=== PATIENT | male | born 1955 | race African-American/Black ===

== ENCOUNTER 2017-06-19 16:28 | Observation (INO) | payer SELFPAY ==
[~2017-06-19] VITALS: Ht 167.6 cm; Wt 74.0 kg
[~2017-06-19 16:28] MED LIST: AMLO5TAB22 PO; ATOR80TA PO; FAMO20TA2 PO; FOLI1 PO; HYDR-2768 PO; LISI2.5T3 PO; OMEP20TA39 PO; PRAV10 PO; PROT40TA PO; PROZ20CA11 PO; SUCR1TAB PO; TRAZ100 PO; [UNRECOGNIZED DRUG - CODE] PO
[2017-06-19 17:09] VITALS: BP 122/65; PULSE 95; RESP 16; TEMP 98.1; O2SAT 96
--- NOTE | 2017-06-19 18:08 | RADRPT ---
EXAM DATE/TIME: 06/19/2017 17:51 [facility] COMPARISON: No previous studies available for comparison. INDICATIONS : Chest pain starting tomorrow MEDICAL HISTORY : Hypertension. Ulcers. SURGICAL HISTORY : None. ENCOUNTER: Initial ACUITY: 1 day PAIN SCORE: 6/10 LOCATION: Bilateral chest FINDINGS: A single view of the chest demonstrates the lungs to be symmetrically aerated without evidence of mas s, infiltrate or effusion. Again seen are calcified pleural plaques similar to February 2016. Minimal bl unting of the costophrenic angles. CONCLUSION: 1. No acute findings. Stable calcified pleural plaques and basilar scarring at the costophrenic angle sMaria Garcia MD on June 19, 2017 at 18:05 Board Certified Radiologist. This report was verified electronically.
[2017-06-19 18:29] LABS: AUTOMATED NEUTROPHIL # 1.2 TH/MM3 (1.8-7.7); EOSINOPHIL # 0.1 TH/MM3 (0-0.4); EOSINOPHIL % 2.6 % (0.0-4.0); HEMATOCRIT 31.1 % (39.0-51.0); HEMO FLAGS DIFF FINAL; LYMPH % 47.5 % (9.0-44.0); LYMPHOCYTE # 1.6 TH/MM3 (1.0-4.8); MEAN CELL VOLUME 79.8 FL (80.0-100.0); MEAN CORPUSCULAR HEMOGLOBIN 24.7 PG (27.0-34.0); MEAN CORPUSCULAR HGB CONC 30.9 % (32.0-36.0); MONO % 12.2 % (0.0-8.0); NEUT % 36.7 % (16.0-70.0); PLATELET COUNT 255 TH/MM3 (150-450); RED CELL DISTRIBUTION WIDTH 21.2 % (11.6-17.2); WHITE BLOOD COUNT 3.4 TH/MM3 (4.0-11.0)
[2017-06-19 18:35] LABS: INTERNATIONAL NORMALIZED RATIO 0.9 RATIO
[2017-06-19 18:49] LABS: ANION GAP 12 MEQ/L (5-15); BICARBONATE 22.5 MEQ/L (21.0-32.0); BLOOD UREA NITROGEN 12 MG/DL (7-18); CHLORIDE 97 MEQ/L (98-107); GLOMERULAR FILTRATION RATE 118 ML/MIN (>89); POTASSIUM 3.7 MEQ/L (3.5-5.1); SODIUM (NA) 131 MEQ/L (136-145)
[2017-06-19 18:54] LABS: CREATINE KINASE 262 U/L (39-308)
[2017-06-19 19:00] VITALS: BP 135/81; PULSE 94; RESP 20; O2SAT 97
--- NOTE | 2017-06-19 19:03 | PD ---
HPI . chest pain since 3 hours ago Chief Complaint: Cardiac Complaint Time Seen by Provider: 19:03 Travel History International Travel<30 days: No Contact w/Intl Traveler<30days: No Traveled to known affect area: No History of Present Illness HPI 61-year-old male with history of hypertension and hyperlipidemia here with complaints of chest pain that started approximately 3 hours ago. Patient tells me that he is having some substernal chest pain that is radiating to his left shoulder. He rates the pain as moderate. He says that he had 2 episodes of vomiting. He does not have any diaphoresis or shortness of breath. He tells me that he is just passing through the area and from [facility]. I reviewed the records and he is been to this hospital numerous times last year and had some issues with chronic anemia. Labs were already ordered on triage and demonstrate similar. First set of cardiac enzyme is unremarkable. Examination is unremarkable Patient has no other specific complaints. PFSH Past Medical History Anemia: Yes Arthritis: Yes Autoimmune Disease: No Blood Disorders: No Depression: Yes Heart Rhythm Problems: No Cancer: No Cardiovascular Problems: Yes High Cholesterol: Yes Chest Pain: Yes Congestive Heart Failure: No Diabetes: No Patient Takes Glucophage: No Diminished Hearing: No Endocrine: No Gastrointestinal Disorders: Yes (hernia) GERD: Yes Genitourinary: No Hiatal Hernia: Yes Hypertension: Yes Immune Disorder: No Implanted Vascular Access Dvce: No Musculoskeletal: Yes Neurologic: No Psychiatric: No Reproductive: No Respiratory: Yes Immunizations Current: Yes Ulcer: Yes (BLEEDING ULCERS FROM ETOH ABUSE) Tetanus Vaccination: > 5 Years Influenza Vaccination: Yes Past Surgical History AICD: No Arteriovenous Shunt: No Insulin Pump: No Joint Replacement: No Neurologic Surgery: No Pacemaker: No Other Surgery: Yes Social History Alcohol Use: Yes (DAILY) Tobacco Use: No (QUIT 2011) Substance Use: No Allergies-Medications (Allergen,Severity, Reaction): Coded Allergies: No Known Allergies (Verified , 06/19/17) Reported Meds & Prescriptions Reported Meds & Active Scripts Active Reported Aspir-81 (Aspirin) 81 Mg Tabdr 81 Mg PO DAILY Pantoprazole (Pantoprazole Sodium) 40 Mg Tab 40 Mg PO DAILY Triamterene-Hydrochlorothiazide 37.5-25 Mg Tab 1 Tab PO DAILY Metoprolol Tartrate 50 Mg Tab 50 Mg PO BID Review of Systems General / Constitutional: No: Fever Eyes: No: Visual changes HENT: No: Headaches Cardiovascular: Positive: Chest Pain or Discomfort Respiratory: No: Shortness of Breath Gastrointestinal: No: Abdominal Pain Genitourinary: No: Dysuria Musculoskeletal: No: Pain Skin: No Rash Neurologic: No: Weakness Psychiatric: No: Depression Endocrine: No: Polydipsia Hematologic/Lymphatic: No: Easy Bruising Physical Exam Narrative GENERAL: AAO x 3, no acute distress, Well-nourished, well-developed patient. SKIN: Warm and dry. No visible rashes or bruising. HEAD: Normocephalic and atraumatic. EYES: No scleral icterus. No injection or drainage. EOM intact, PERRLA ENT: No nasal drainage noted. Mucous membranes pink. Airway patent. NECK: Supple, trachea midline. No JVD. CARDIOVASCULAR: Regular rate and rhythm without murmurs, gallops, or rubs. RESPIRATORY: Breath sounds equal bilaterally. No accessory muscle use. No rhonchi or rales. GASTROINTESTINAL: Abdomen soft, non-tender, nondistended. No rebound, guarding , McBurney's point tenderness or Acuña's sign EXTREMITIES: No cyanosis or edema. BACK: No obvious deformity. NEURO: CN II-12 intact, die caster strength normal b/l, UE and LE 5/5, no focal deficits PSYCH: AAO x 3, normal affect. Data Data Last Documented VS Vital Signs Date Time Temp Pulse Resp B/P Pulse Ox O2 Delivery O2 Flow Rate FiO2 06/19/17 17:09 98.1 95 16 122/65 96 Orders Electrocardiogram (06/19/17 17:28) Complete Blood Count With Diff (06/19/17 17:28) Basic Metabolic Panel (Bmp) (06/19/17 17:28) Ckmb (Isoenzyme) Profile (06/19/17 17:28) Troponin I (06/19/17 17:28) Chest, Single Ap (06/19/17 17:28) Iv Access Insert/Monitor (06/19/17 17:28) Ecg Monitoring (06/19/17 17:28) Oxygen Administration (06/19/17 17:28) Oximetry (06/19/17 17:28) Act Partial Throm Time (Ptt) (06/19/17 17:28) Prothrombin Time / Inr (Pt) (06/19/17 17:28) CKMB (06/19/17 17:49) CKMB% (06/19/17 17:49) Admit Order (Ed Use Only) (06/19/17 20:04) Activity Bed Rest With Brp (06/19/17 20:04) Vital Signs (Adult) Q4H (06/19/17 20:04) Cardiac Rhythm .As Directed (06/19/17 20:04) Notify Dr: Other .PRN (06/19/17 20:04) Notify DrMaria Parameters (06/19/17 20:04) Resp Oxygen Nasal Cannula (06/19/17 ) Ckmb (Isoenzyme) Profile (06/19/17 21:49) Ckmb (Isoenzyme) Profile (06/20/17 00:49) Troponin I (06/19/17 21:49) Troponin I (06/20/17 00:49) Electrocardiogram (06/19/17 21:49) Electrocardiogram (06/20/17 00:49) ^ Obtain (06/19/17 20:04) Sodium Chloride 0.9% Flush (Ns Flush) (06/19/17 20:15) Sodium Chloride 0.9% Flush (Ns Flush) (06/19/17 21:00) Documentation Nurse / Telemetry [email or web address] (06/19/17 20:04) Labs Laboratory Tests Test 06/19/17 17:49 White Blood Count 3.4 TH/MM3 Red Blood Count 3.90 MIL/MM3 Hemoglobin 9.6 GM/DL Hematocrit 31.1 % Mean Corpuscular Volume 79.8 FL Mean Corpuscular Hemoglobin 24.7 PG Mean Corpuscular Hemoglobin 30.9 % Concent Red Cell Distribution Width 21.2 % Platelet Count 255 TH/MM3 Mean Platelet Volume 7.1 FL Neutrophils (%) (Auto) 36.7 % Lymphocytes (%) (Auto) 47.5 % Monocytes (%) (Auto) 12.2 % Eosinophils (%) (Auto) 2.6 % Basophils (%) (Auto) 1.0 % Neutrophils # (Auto) 1.2 TH/MM3 Lymphocytes # (Auto) 1.6 TH/MM3 Monocytes # (Auto) 0.4 TH/MM3 Eosinophils # (Auto) 0.1 TH/MM3 Basophils # (Auto) 0.0 TH/MM3 CBC Comment DIFF FINAL Differential Comment Prothrombin Time 10.0 SEC Prothromb Time International 0.9 RATIO Ratio Activated Partial 25.0 SEC Thromboplast Time Sodium Level 131 MEQ/L Potassium Level 3.7 MEQ/L Chloride Level 97 MEQ/L Carbon Dioxide Level 22.5 MEQ/L Anion Gap 12 MEQ/L Blood Urea Nitrogen 12 MG/DL Creatinine 0.81 MG/DL Estimat Glomerular Filtration 118 ML/MIN Rate Random Glucose 95 MG/DL Calcium Level 8.6 MG/DL Total Creatine Kinase 262 U/L Creatine Kinase MB 6.4 NG/ML Troponin I LESS THAN 0.02 NG/ML MDM Medical Decision Making Medical Screen Exam Complete: Yes Emergency Medical Condition: Yes Medical Record Reviewed: Yes Differential Diagnosis Angina versus ACS versus musculoskeletal discomfort Narrative Course 61 yr old male here with c/o chest pain that started 3 hours prior to arrival. Examination is unremarkable. EKG reviewed. Labs have been reviewed. Case has been discussed with my attending Dr. Howell. Patient carries risk factors for coronary artery disease, therefore we will go ahead and admit for overnight observation. Patient will be monitored for serial cardiac enzymes and EKGs. Further recommendations will be made through the chest pain center. I have discussed recommendations with the patient and he is in agreement. Patient verbalized understanding of instructions, questions were answered, and thanked me for their care. Diagnosis Primary Impression: Chest pain Qualified Code: R07.9 - Chest pain, unspecified type Condition: Mayda Liang Jun 19, 2017 19:03
[2017-06-19 19:06] LABS: CKMB 6.4 NG/ML (0.5-3.6)
[2017-06-19] MEDS ORDERED: TRIA37.5 PO (19:07)
[2017-06-19] MEDS ORDERED: METO50TA PO (19:07)
[2017-06-19] MEDS ORDERED: PANT40TA3 PO (19:07)
[2017-06-19] MEDS ORDERED: ASPI81TA81 PO (19:07)
[2017-06-19 20:00] VITALS: BP 140/105; PULSE 93; RESP 20; O2SAT 96
[2017-06-19] MEDS ORDERED: SODIUM CHLORIDE 0.9% FLUSH 10 ML FLUSH IV FLUSH PRN (20:15)
[2017-06-19] MEDS: SODIUM CHLORIDE 0.9% FLUSH 10 ML FLUSH IV FLUSH SCH (21:17)
[2017-06-19 21:29] VITALS: BP 130/61; PULSE 90; RESP 12; O2SAT 97
[2017-06-19 22:14] LABS: CREATINE KINASE 240 U/L (39-308)
[2017-06-19 22:34] LABS: CKMB 5.3 NG/ML (0.5-3.6)
[2017-06-19 22:59] VITALS: BP 131/68; PULSE 96; RESP 20; TEMP 98; O2SAT 98
[2017-06-19 23:11] VITALS: PULSE 104
[2017-06-20 00:24] VITALS: O2SAT 97
[2017-06-20 01:11] LABS: CREATINE KINASE 220 U/L (39-308)
[2017-06-20 01:23] LABS: CKMB 5.3 NG/ML (0.5-3.6)
[2017-06-20 03:30] VITALS: BP 126/76; PULSE 109; RESP 20; TEMP 98.2; O2SAT 99
[2017-06-20 04:46] VITALS: PULSE 78
[2017-06-20] MEDS ORDERED: NITROGLYCERIN 0.4 MG SL 25 TABS/BTL SL PRN (07:45)
[2017-06-20] MEDS ORDERED: ACETAMINOPHEN 500 MG CPLT PO PRN (07:45)
[2017-06-20] MEDS ORDERED: ONDANSETRON HCL 4 MG/2 ML VIAL IV PRN (07:45)
[2017-06-20 08:41] VITALS: BP 154/78; PULSE 85; TEMP 98.5; O2SAT 98
[2017-06-20] MEDS ORDERED: ASPIRIN 325 MG TAB PO SCH (09:00)
[2017-06-20] MEDS: SODIUM CHLORIDE 0.9% FLUSH 10 ML FLUSH IV FLUSH SCH (09:07)
--- NOTE | 2017-06-20 09:31 | HHI.HP ---
HPI Primary Care Physician No Primary Care Physician Chief Complaint Chest pain History of Present Illness 61-year-old male with history of hypertension, hyperlipidemia, and anemia presents to emergency room for further evaluation of chest pain. Onset 12:30 PM while walking. Location substernal. Characterized as sharp and stabbing pain pain level rated 10/10. Duration approximately 30 minutes. No radiation of pain. Associated symptoms included shortness of breath, denying any nausea, vomiting, or diaphoresis. Hurt to take a deep breath. Recently discharge from a hospital in [facility], he cannot remember the name hospital, where he was hospitalized for 3 days for pneumonia. given a prescription for oral antibiotics taking for 2 days. States he is homeless and has walked from [place] over the past few weeks and he is heading to [facility], [place]. Currently chest pain rated 3/10 described as achy. Coughing has improved, denies any sputum production Review of Systems General: No fatigue,weakness, fever, chills, or change in appetite. Recent pneumonia last week, hospitalized [address] days[address] with [facility]. HEENT: No CARBAJAL, no vision changes, no nasal congestion or drainage, no dysphasia CV: As stated above. RESP: No SOB, sputum production, or wheeze. Reports coughing has improved after recent hospitalization. GI: No nausea, vomiting, bowel changes, diarrhea, constipation, pain, distention , melena, or blood in the stool. : No dysuria EXT: No lower leg edema, no paraesthesias MS: No discomfort or change in ROM, bilateral lower leg pain he relates to walking all day, every day. NEURO: No difficulty with balance, LOC, motor/sensory deficits PSYCH: No anxiety, depression, or suicidal ideation. SKIN: No rashes, no concerning lesions Past Family Social History Allergies: Coded Allergies: No Known Allergies (Verified , 06/19/17) Past Medical History Hypertension, hyperlipidemia, anemia, depression, GERD, hiatal hernia, bleeding ulcer, alcohol use, remote cocaine use Past Surgical History Right hand surgery Reported Medications Reported Meds & Active Scripts Active Reported Aspir-81 (Aspirin) 81 Mg Tabdr 81 Mg PO DAILY Pantoprazole (Pantoprazole Sodium) 40 Mg Tab 40 Mg PO DAILY Triamterene-Hydrochlorothiazide 37.5-25 Mg Tab 1 Tab PO DAILY Metoprolol Tartrate 50 Mg Tab 50 Mg PO BID Active Ordered Medications Current Medications Medications (Trade) Dose Ordered Sig/Gordy Route Start Time Stop Time Status Last Admin (NS Flush) 2 ml UNSCH PRN IV FLUSH 06/19/17 20:15 (NS Flush) 2 ml BID IV FLUSH 06/19/17 21:00 06/20/17 09:07 (Tylenol) 500 mg Q4H PRN PO 06/20/17 07:45 (Zofran Inj) 4 mg Q6H PRN IV 06/20/17 07:45 (Nitrostat Sl) 0.4 mg Q5M PRN SL 06/20/17 07:45 (Aspirin) 325 mg DAILY PO 06/20/17 09:00 06/20/17 09:06 Family History Noncontributory for early onset cardiovascular disease. Social History Known hypertension and hyperlipidemia. No known coronary artery disease or diabetes. Quit smoking cigarettes 5 years ago denies any illegal drug use. Endorses drinking 8 beers daily. Homeless with relocations in multiple areas of [place]. Past cardiac testing 02/07/15 Stress test-negative for ischemia 6:15mins 08/14/13 Stress test-negative for ischemia 7:00mins Physical Exam Vital Signs Vital Signs Date Time Temp Pulse Resp B/P Pulse Ox O2 Delivery O2 Flow Rate FiO2 06/20/17 08:41 98.5 85 154/78 98 06/20/17 04:46 78 06/20/17 03:30 98.2 109 20 126/76 99 06/20/17 00:24 97 06/19/17 23:11 104 06/19/17 22:59 98.0 96 20 131/68 98 06/19/17 21:29 90 12 130/61 97 Room Air 06/19/17 20:00 93 20 140/105 96 Room Air 06/19/17 19:00 94 20 135/81 97 06/19/17 17:09 98.1 95 16 122/65 96 Physical Exam GENERAL: Alert WN, WD, NAD, pleasant, male who appears older than stated age HEAD: NC, AT EYES: Sclera clear, conjunctiva without injection, pupils equal and round ENT: Mucous membranes pink and moist NECK: Supple, no masses, trachea midline CV: RRR, without murmur, rub, gallop, no JVD, S1-S2 no S3-S4. No carotid bruits. Nontender and chest wall with palpation. RESP: Clear lungs throughout bilateral, no crackles, wheeze, rhonchi, symmetrical chest rise, nonlabored, able to speak in full sentences ABD: Soft, NT, ND, no masses, positive bowel tones EXT: Pulses +24, no dependent edema MS: Normal tone 4 extremities, nontender, no obvious deformities, full range of motion NEURO: CN II through CN XII grossly intact, motor strength 5/5, gait WNL PSYCH: A+O 3, pleasant affect, appropriate speech, appropriate mood and affect , insight and judgment SKIN: Normal turgor, normal texture, no lesions, no rashes, brisk cap refill, even hair distribution Laboratory Laboratory Tests Test 06/19/17 06/19/17 06/20/17 17:49 21:00 00:20 White Blood Count 3.4 Red Blood Count 3.90 Hemoglobin 9.6 Hematocrit 31.1 Mean Corpuscular Volume 79.8 Mean Corpuscular Hemoglobin 24.7 Mean Corpuscular Hemoglobin 30.9 Concent Red Cell Distribution Width 21.2 Platelet Count 255 Mean Platelet Volume 7.1 Neutrophils (%) (Auto) 36.7 Lymphocytes (%) (Auto) 47.5 Monocytes (%) (Auto) 12.2 Eosinophils (%) (Auto) 2.6 Basophils (%) (Auto) 1.0 Neutrophils # (Auto) 1.2 Lymphocytes # (Auto) 1.6 Monocytes # (Auto) 0.4 Eosinophils # (Auto) 0.1 Basophils # (Auto) 0.0 CBC Comment DIFF FINAL Differential Comment Prothrombin Time 10.0 Prothromb Time International 0.9 Ratio Activated Partial 25.0 Thromboplast Time Sodium Level 131 Potassium Level 3.7 Chloride Level 97 Carbon Dioxide Level 22.5 Anion Gap 12 Blood Urea Nitrogen 12 Creatinine 0.81 Estimat Glomerular Filtration 118 Rate Random Glucose 95 Calcium Level 8.6 Total Creatine Kinase 262 240 220 Creatine Kinase MB 6.4 5.3 5.3 Troponin I LESS THAN 0.02 LESS THAN 0.02 LESS THAN 0.02 Result Diagram: 06/19/17 1749 06/19/17 174 Imaging Last Impressions Chest X-Ray 06/19/17 1728 Signed Impressions: Service Date/Time: Monday, June 19, 2017 17:51 - CONCLUSION: 1. No acute findings. Stable calcified pleural plaques and basilar scarring at the costophrenic angles. Bud Garcia MD Course EKG Normal sinus rhythm, no ST changes, nonspecific T-wave changes leads III and AVF Assessment and Plan Assessment and Plan Chest painadmitted to chest pain center. Ruled out with 3 sets of EKGs, cardiac enzymes, monitor overnight. Seen and evaluated by Dr. Isra Rowan. Exercise stress test completed, no signs of ischemia. Later discharged this morning. Patient is agreeable to plan of care. Hypertensioncontinue triamterene/hydrochlorothiazide, encourage a low sodium diet GERDcontinue Protonix EtOH useencourage alcohol cessation Martine Saunders Jun 20, 2017 09:31
--- NOTE | 2017-06-20 11:10 | TR ---
Date Performed: 06/20/2017 Time Performed: 10:31:21 DOCTOR: Isra Rowan DRUG LIST: CLINICAL HISTORY: REASON FOR TEST: Chest pain REASON FOR ENDING: OBSERVATION: CONCLUSION: Alex protocol completed. Stopped sec to exceeding target heart rate and leg fatigue . Maximum FV=717 Target HR Achieved=94.0% Maximum HP=652/92 Total Exercise Time=4:34. No reprod chest discomfort. No ectopy. No st t segment changes to sugg ischemia. Good exercise tolerance. Normal bp response. Recovery quick and unremarkable. COMMENTS: Conclusion: Normal treadmill exercise. No evidence of ischemia.
--- NOTE | 2017-06-20 11:38 | HHI.DCPOC ---
Discharge Care Plan Diagnosis: (1) Chest wall pain (2) Alcohol abuse (3) GERD (gastroesophageal reflux disease) Goals to Promote Your Health * To prevent worsening of your condition and complications * To maintain your health at the optimal level Directions to Meet Your Goals Take your medications as prescribed Follow your dietary instruction Follow activity as directed Keep your appointments as scheduled Take your immunizations and boosters as scheduled If your symptoms worsen call your PCP, if no PCP go to Urgent Care Center or Emergency Room Smoking is Dangerous to Your Health. Avoid second hand smoke Call the 24-hour hour crisis hotline for domestic abuse at Martine SaundersP Jun 20, 2017 11:38
--- NOTE | 2017-06-20 17:11 | EKG ---
Date Performed: 06/20/2017 Time Performed: 00:22:40 PTAGE: 61 years EKG: SINUS TACHYCARDIA NONSPECIFIC T-WAVE ABNORMALITY ABNORMAL RHYTHM ECG PREVIOUS TRACING : 06/19/2017 21.02 Since previous tracing, no significant change noted DOCTOR: Isra Rowan Interpretating Date/Time 06/20/2017 17:09:51
--- NOTE | 2017-06-20 17:15 | EKG ---
Date Performed: 06/19/2017 Time Performed: 21:02:18 PTAGE: 61 years EKG: SINUS TACHYCARDIA POSSIBLE LEFT ATRIAL ENLARGEMENT NONSPECIFIC T-WAVE ABNORMALITY ABNORMAL RHYTHM ECG PREVIOUS TRACING : 06/19/2017 21.00 Since previous tracing, no significant change noted DOCTOR: Isra Rowan Interpretating Date/Time 06/20/2017 17:13:22
--- NOTE | 2017-06-20 17:16 | EKG ---
Date Performed: 06/19/2017 Time Performed: 17:04:29 PTAGE: 61 years EKG: Sinus rhythm NONSPECIFIC T-WAVE ABNORMALITY BORDERLINE ECG PREVIOUS TRACING : 06/19/2017 17.04 Since previous tracing, no significant change noted DOCTOR: Isra Rowan Interpretating Date/Time 06/20/2017 17:15:42
== END 2017-06-20 13:38 | disposition home or self-care (01) ==
LOC: NEPC 16:28 → NEDA 20:06 → NEPHCDU 22:51
PROVIDERS: ADMIT Internal Medicine Interventional Cardiology; ATTEND Internal Medicine Interventional Cardiology
DX: R07.89 Other chest pain (principal); F10.10 Alcohol abuse, uncomplicated; I10 Essential (primary) hypertension; E78.5 Hyperlipidemia, unspecified; D64.9 Anemia, unspecified; K21.9 Gastro-esophageal reflux disease without esophagitis; R94.31 Abnormal electrocardiogram [ECG] [EKG]; Z59.0 Homelessness; Z79.82 Long term (current) use of aspirin; Z79.899 Other long term (current) drug therapy
CPT/HCPCS: 71010; 80048; 82550; 82552; 84484; 85025; 85610; 85730; 93005; 93017; 99285; G0378

== ENCOUNTER 2017-06-30 18:44 | Emergency (ER) | payer SELFPAY ==
[2017-06-30 18:44] VITALS: BP 154/80; PULSE 86; RESP 16; TEMP 98.5; O2SAT 98
[~2017-06-30 18:44] MED LIST changes: -AMLO5TAB22 PO; +ASPI81TA81 PO; -ATOR80TA PO; -FAMO20TA2 PO; -FOLI1 PO; -HYDR-2768 PO; -LISI2.5T3 PO; +METO50TA PO; -OMEP20TA39 PO; +PANT40TA3 PO; -PRAV10 PO; -PROT40TA PO; -PROZ20CA11 PO; -SUCR1TAB PO; -TRAZ100 PO; +TRIA37.5 PO; -[UNRECOGNIZED DRUG - CODE] PO
--- NOTE | 2017-06-30 19:23 | PD ---
HPI Chief Complaint: Chest Pain Time Seen by Provider: 19:18 Travel History International Travel<30 days: No Contact w/Intl Traveler<30days: No Traveled to known affect area: No History of Present Illness HPI The patient is a 61-year-old male, frequent visitor for alcohol abuse and has come in for atypical chest pain in the past who complains of a sharp chest pain primarily on the left side of the chest. He states he got this chest pain while walking today. He had 8 beers today. He is also homeless. He has no history of heart disease. He does not smoke. PFSH Past Medical History Anemia: Yes Arthritis: Yes Autoimmune Disease: No Blood Disorders: No Depression: Yes Heart Rhythm Problems: Yes Cancer: No Cardiac Catheterization: No Cardiovascular Problems: Yes High Cholesterol: No Chest Pain: Yes Congestive Heart Failure: No Diabetes: No Diminished Hearing: No Endocrine: No Gastrointestinal Disorders: Yes (hernia) GERD: Yes Genitourinary: No Hiatal Hernia: Yes Hypertension: Yes Immune Disorder: No Implanted Vascular Access Dvce: No Musculoskeletal: Yes Neurologic: No Psychiatric: No Reproductive: No Respiratory: Yes Immunizations Current: Yes Ulcer: Yes (BLEEDING ULCERS FROM ETOH ABUSE) Tetanus Vaccination: > 5 Years Influenza Vaccination: Yes Past Surgical History AICD: No Arteriovenous Shunt: No Coronary Artery Bypass Graft: No Insulin Pump: No Joint Replacement: No Neurologic Surgery: No Pacemaker: No Other Surgery: Yes Family History Family Myocardial Infarction: Yes Social History Alcohol Use: Yes (DAILY) Tobacco Use: No (QUIT 2011) Substance Use: No Allergies-Medications (Allergen,Severity, Reaction): Coded Allergies: No Known Allergies (Verified , 06/30/17) Reported Meds & Prescriptions Reported Meds & Active Scripts Active Reported Triamterene-Hydrochlorothiazide 37.5-25 Mg Tab 1 Tab PO DAILY Review of Systems Except as stated in HPI: all other systems reviewed are Neg Physical Exam Narrative GENERAL: The patient is alert, oriented 3, smells strongly of beer and slight apparent distress with his chest pain. His vital signs show blood pressure 154/ 80 but are otherwise normal. SKIN: Focused skin assessment warm/dry. HEAD: Atraumatic. Normocephalic. EYES: Pupils equal and round. No scleral icterus. No injection or drainage. ENT: No nasal bleeding or discharge. Mucous membranes pink and moist. NECK: Trachea midline. No JVD. CARDIOVASCULAR: Regular rate and rhythm. No murmur appreciated. I can completely reproduce the patient's chest pain by pressing on the chest wall. RESPIRATORY: No accessory muscle use. Clear to auscultation. Breath sounds equal bilaterally. GASTROINTESTINAL: Abdomen soft, non-tender, nondistended. Hepatic and splenic margins not palpable. MUSCULOSKELETAL: No obvious deformities. No clubbing. No cyanosis. No edema. NEUROLOGICAL: Awake and alert. No obvious cranial nerve deficits. Motor grossly within normal limits. Normal speech. PSYCHIATRIC: The patient appears alcohol intoxicated but his judgment is fairly good. Data Data Last Documented VS Vital Signs Date Time Temp Pulse Resp B/P Pulse Ox O2 Delivery O2 Flow Rate FiO2 06/30/17 19:40 98 Room Air 06/30/17 18:44 98.5 86 16 154/80 Orders Electrocardiogram (06/30/17 18:40) Electrocardiogram (06/30/17 19:23) Ckmb (Isoenzyme) Profile (06/30/17 19:23) Complete Blood Count With Diff (06/30/17 19:23) Comprehensive Metabolic Panel (06/30/17 19:23) Magnesium (Mg) (06/30/17 19:23) Troponin I (06/30/17 19:23) Ecg Monitoring (06/30/17 19:23) Iv Access Insert/Monitor (06/30/17:23) Oximetry (06/30/17 19:23) Oxygen Administration (06/30/17 19:23) Sodium Chloride 0.9% Flush (Ns Flush) (06/30/17 19:30) Chest, Pa & Lat (06/30/17 19:23) Sodium Chlor 0.9% 1000 Ml Inj (Ns 1000 M (06/30/17 19:30) Alcohol (Ethanol) (06/30/17 19:23) Thiamine Inj (Thiamine Inj) (06/30/17 19:30) CKMB (06/30/17 19:40) CKMB% (06/30/17 19:40) Labs Laboratory Tests Test 06/30/17 19:40 White Blood Count 7.7 TH/MM3 Red Blood Count 4.07 MIL/MM3 Hemoglobin 9.9 GM/DL Hematocrit 31.7 % Mean Corpuscular Volume 77.9 FL Mean Corpuscular Hemoglobin 24.3 PG Mean Corpuscular Hemoglobin 31.2 % Concent Red Cell Distribution Width 20.8 % Platelet Count 293 TH/MM3 Mean Platelet Volume 6.3 FL CBC Comment AUTO DIFF Sodium Level 137 MEQ/L Potassium Level 3.8 MEQ/L Chloride Level 101 MEQ/L Carbon Dioxide Level 23.9 MEQ/L Anion Gap 12 MEQ/L Blood Urea Nitrogen 6 MG/DL Creatinine 0.91 MG/DL Estimat Glomerular Filtration 103 ML/MIN Rate Random Glucose 87 MG/DL Calcium Level 8.8 MG/DL Magnesium Level 1.9 MG/DL Total Bilirubin 0.3 MG/DL Aspartate Amino Transf 42 U/L (AST/SGOT) Alanine Aminotransferase 19 U/L (ALT/SGPT) Alkaline Phosphatase 90 U/L Total Creatine Kinase 258 U/L Creatine Kinase MB 6.4 NG/ML Troponin I LESS THAN 0.02 NG/ML Total Protein 8.1 GM/DL Albumin 3.7 GM/DL Ethyl Alcohol Level 328 MG/DL [facility] Medical Decision Making Medical Screen Exam Complete: Yes Emergency Medical Condition: Yes Medical Record Reviewed: Yes Interpretation(s) The CBC shows an anemia with a hemoglobin of 9.9 and hematocrit of 31.7. The complete metabolic profile shows an AST of 42 but is otherwise normal. The troponin I is normal. The alcohol is 328. Differential Diagnosis Atypical chest pain, alcohol intoxication, electrolyte disorder, hypo-/ hyperglycemia, renal insufficiency, anemia Narrative Course The patient has atypical chest pain. He is also alcohol intoxicated. These 2 are not unrelated, the patient comes in worried about his chest pain when he gets intoxicated. Diagnosis Primary Impression: Atypical chest pain Additional Impression: Alcohol abuse Additional Instructions: As we discussed, discontinue alcohol. One of your liver enzymes is elevated. Alcohol can damage your liver. Follow-up with a primary care physician and use [facility] to get off alcohol. Disposition: 01 DISCHARGE HOME Condition: Stable Rufino Read MD Jun 30, 2017 19:23
[2017-06-30] MEDS ORDERED: SODIUM CHLOR 0.9% 1000 ML INJ 1,000 ML IV SCH (19:30)
[2017-06-30] MEDS ORDERED: SODIUM CHLORIDE 0.9% FLUSH 10 ML FLUSH IVF PRN (19:30)
[2017-06-30] MEDS ORDERED: THIAMINE INJ 100 MG in SODIUM CHLORIDE 0.9% INJ 100 ML IV ONE (19:30)
[2017-06-30 19:40] VITALS: O2SAT 98
[2017-06-30 20:01] LABS: CHLORIDE 101 MEQ/L (98-107); POTASSIUM 3.8 MEQ/L (3.5-5.1); SODIUM (NA) 137 MEQ/L (136-145)
[2017-06-30 20:05] LABS: ANION GAP 12 MEQ/L (5-15); BICARBONATE 23.9 MEQ/L (21.0-32.0); BLOOD UREA NITROGEN 6 MG/DL (7-18); HEMATOCRIT 31.7 % (39.0-51.0); MAGNESIUM 1.9 MG/DL (1.5-2.5); MEAN CELL VOLUME 77.9 FL (80.0-100.0); MEAN CORPUSCULAR HEMOGLOBIN 24.3 PG (27.0-34.0); MEAN CORPUSCULAR HGB CONC 31.2 % (32.0-36.0); PLATELET COUNT 293 TH/MM3 (150-450); RED BLOOD COUNT 4.07 MIL/MM3 (4.50-5.90); RED CELL DISTRIBUTION WIDTH 20.8 % (11.6-17.2); WHITE BLOOD COUNT 7.7 TH/MM3 (4.0-11.0)
[2017-06-30 20:07] LABS: HEMO FLAGS AUTO DIFF
[2017-06-30 20:08] LABS: ALT (GPT) 19 U/L (12-78); AST (GOT) 42 U/L (15-37); GLOMERULAR FILTRATION RATE 103 ML/MIN (>89)
[2017-06-30 20:10] LABS: TOTAL BILIRUBIN ADULT 0.3 MG/DL (0.2-1.0)
[2017-06-30 20:11] LABS: ALKALINE PHOSPHATASE 90 U/L (45-117); CREATINE KINASE 258 U/L (39-308)
[2017-06-30 20:15] LABS: ALCOHOL 328 MG/DL (0-5)
--- NOTE | 2017-06-30 20:21 | RADRPT ---
EXAM DATE/TIME: 06/30/2017 19:29 [facility] COMPARISON: No previous studies available for comparison. INDICATIONS : Chest pain. MEDICAL HISTORY : Hypertension. SURGICAL HISTORY : None. ENCOUNTER: Initial ACUITY: 1 day PAIN SCORE: 10/10 LOCATION: Bilateral chest FINDINGS: Calcified pleural plaque noted right lung base. There is blunting of costophrenic angles characterist ic of scarring or trace fluid. No pneumothorax. Heart size normal. CONCLUSION: 1. Calcified pleural plaque right lung base with basilar pleural scarring or fluid. 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 No pneumothorax. Bud Garcia MD on June 30, 2017 at 20:17 Board Certified Radiologist. This report was verified electronically.
[2017-06-30 20:23] LABS: CKMB 6.4 NG/ML (0.5-3.6)
[2017-06-30 20:54] LABS: BASOPHILS 1 % (0-2); NEUTROPHIL # MANUAL DIFF 3.1 TH/MM3 (1.8-7.7); POLYS (SEG NEUTROPHILS) 40 % (16-70); WBC DIFF SAMPLE 100
[2017-06-30 20:55] LABS: OVALOCYTES 1+ (NORMAL); PLATELET ESTIMATE SMEAR NORMAL (NORMAL); PLATELET MORPHOLOGY NORMAL (NORMAL); SCAN/DIFF FINAL DIFF MANUAL
[2017-06-30 21:02] VITALS: BP 150/76; PULSE 76; RESP 16; O2SAT 97
[2017-06-30 21:41] VITALS: BP 155/78
--- NOTE | 2017-07-01 08:27 | EKG ---
Date Performed: 06/30/2017 Time Performed: 18:40:43 PTAGE: 61 years EKG: Sinus rhythm NORMAL ECG INTERPRETATION BASED ON A DEFAULT AGE OF 42 YEARS NO PREVIOUS TRACING DOCTOR: Leroy Unger Interpretating Date/Time 07/01/2017 08:24:54
== END 2017-06-30 21:47 | disposition home or self-care (01) ==
LOC: PHED 18:44
DX: R07.89 Other chest pain (principal); F10.10 Alcohol abuse, uncomplicated; I10 Essential (primary) hypertension; K21.9 Gastro-esophageal reflux disease without esophagitis; Z87.891 Personal history of nicotine dependence; Y90.1 Blood alcohol level of 20-39 mg/100 ml
CPT/HCPCS: 71020; 80053; 80307; 82550; 82552; 83735; 84484; 85007; 85027; 93005; 96365; 99285; J3411; J7030

== ENCOUNTER 2017-11-02 18:57 | Observation (INO) | payer OTHER ==
[~2017-11-02 18:57] MED LIST changes: -ASPI81TA81 PO; -METO50TA PO; -PANT40TA3 PO
[2017-11-02 19:05] VITALS: BP 130/80; PULSE 80; RESP 18; TEMP 97.9; O2SAT 96
[2017-11-02] MEDS ORDERED: SODIUM CHLOR 0.9% 1000 ML INJ 1,000 ML IV SCH (19:20)
--- NOTE | 2017-11-02 19:29 | PD ---
HPI Chief Complaint: Chest Pain Time Seen by Provider: 19:27 Travel History International Travel<30 days: No Contact w/Intl Traveler<30days: No Traveled to known affect area: No History of Present Illness HPI 62-year-old male with history of alcoholism and cocaine abuse presents to emergency department for evaluation of epigastric pain for the last 3-4 days. Patient reports been constant and burning. It continues to get worse. Patient last used cocaine 4 days ago. He does consume large amount of alcohol every day. He denies any shortness of breath associated with this. Denies nausea or vomiting. Denies any fever or chills. No other symptoms reported. PFSH Past Medical History Anemia: Yes Arthritis: Yes Autoimmune Disease: No Blood Disorders: No Depression: Yes Heart Rhythm Problems: Yes Cancer: No Cardiac Catheterization: No Cardiovascular Problems: Yes High Cholesterol: No Chest Pain: Yes Congestive Heart Failure: No Diabetes: No Diminished Hearing: No Endocrine: No Gastrointestinal Disorders: Yes (hernia) GERD: Yes Genitourinary: No Hiatal Hernia: Yes Hypertension: Yes Immune Disorder: No Implanted Vascular Access Dvce: No Musculoskeletal: Yes Neurologic: No Psychiatric: No Reproductive: No Respiratory: Yes Immunizations Current: Yes Ulcer: Yes (BLEEDING ULCERS FROM ETOH ABUSE) ?: Not Past Surgical History AICD: No Arteriovenous Shunt: No Coronary Artery Bypass Graft: No Insulin Pump: No Joint Replacement: No Neurologic Surgery: No Pacemaker: No Other Surgery: Yes Social History Alcohol Use: Yes (DAILY) Tobacco Use: No (QUIT 2011) Substance Use: No Allergies-Medications (Allergen,Severity, Reaction): Coded Allergies: No Known Allergies (Verified Adverse Reaction, Unknown, 11/02/17) Reported Meds & Prescriptions Reported Meds & Active Scripts Active Reported Triamterene-Hydrochlorothiazide 37.5-25 Mg Tab 1 Tab PO DAILY Review of Systems Except as stated in HPI: all other systems reviewed are Neg Physical Exam Narrative GENERAL: Well-nourished male patient, sitting up in bed in no acute distress. SKIN: Focused skin assessment warm/dry. HEAD: Atraumatic. Normocephalic. EYES: Pupils equal and round. No scleral icterus. No injection or drainage. ENT: No nasal bleeding or discharge. Mucous membranes pink and moist. NECK: Trachea midline. No JVD. CARDIOVASCULAR: Regular rate and rhythm. No murmur appreciated. RESPIRATORY: No accessory muscle use. Clear to auscultation. Breath sounds equal bilaterally. GASTROINTESTINAL: Abdomen soft, nondistended. Epigastric and left upper quadrant tenderness to palpation. Mild guarding. Hepatic and splenic margins not palpable. MUSCULOSKELETAL: No obvious deformities. No clubbing. No cyanosis. No edema. NEUROLOGICAL: Awake and alert. No obvious cranial nerve deficits. Motor grossly within normal limits. Normal speech. PSYCHIATRIC: Appropriate mood and affect; insight and judgment normal. Data Data Last Documented VS Vital Signs Date Time Temp Pulse Resp B/P (MAP) Pulse Ox O2 Delivery O2 Flow Rate FiO2 11/02/17 21:09 95 Room Air 11/02/17 21:08 90 16 11/02/17 19:05 97.9 Orders Orders Complete Blood Count With Diff (11/02/17 19:20) Comprehensive Metabolic Panel (11/02/17 19:20) Lipase (11/02/17 19:20) Prothrombin Time / Inr (Pt) (11/02/17:20) Act Partial Throm Time (Ptt) (11/02/17:20) Urinalysis - C+S If Indicated (11/02/17 19:20) Iv Access Insert/Monitor (11/02/17 19:20) Ecg Monitoring (11/02/17:20) Oximetry (11/02/17 19:20) Sodium Chlor 0.9% 1000 Ml Inj (Ns 1000 M (11/02/17 19:20) Sodium Chloride 0.9% Flush (Ns Flush) (11/02/17 19:30) Electrocardiogram (11/02/17 19:20) Pantoprazole Inj (Protonix Inj) (11/02/17 21:30) Al-Mag Hy-Si 40-40-4 Mg/Ml Liq (Mag-Al P (11/02/17 21:30) Lidocaine 2% Viscous (Xylocaine 2% Visco (11/02/17 21:30) Admit Order (Ed Use Only) (11/02/17 22:07) Activity Bed Rest With Brp (11/02/17 22:07) Vital Signs (Adult) Q4H (11/02/17 22:07) Cardiac Rhythm .As Directed (11/02/17 22:07) Notify Dr: Other .PRN (11/02/17 22:07) Notify Parameters (11/02/17 22:07) Resp Oxygen Nasal Cannula (11/02/17 ) Diet Npo (11/03/17 Breakfast) Ckmb (Isoenzyme) Profile (11/02/17 23:15) Ckmb (Isoenzyme) Profile (11/03/17 02:15) Troponin I (11/02/17 23:15) Troponin I (11/03/17 02:15) Electrocardiogram (11/02/17 23:15) Electrocardiogram (11/03/17 02:15) ^ Obtain (11/02/17 22:07) Sodium Chloride 0.9% Flush (Ns Flush) (11/02/17 22:15) Sodium Chloride 0.9% Flush (Ns Flush) (11/03/17 09:00) Acetaminophen (Tylenol) (11/02/17 22:15) Ondansetron Inj (Zofran Inj) (11/02/17 22:15) Nitroglycerin Sl (Nitrostat Sl) (11/02/17 22:15) Pilot Instructor / Telemetry BRIANNA.Q8H (11/02/17 22:07) Gustavo Bilateral/Knee High BRIANNA.QSHIFT (11/02/17 22:07) Ckmb (Isoenzyme) Profile (11/02/17 21:05) Troponin I (11/02/17 21:05) CKMB (11/02/17 21:05) CKMB% (11/02/17 21:05) Labs Laboratory Tests Test 11/02/17 21:05 White Blood Count 3.4 TH/MM3 Red Blood Count 4.54 MIL/MM3 Hemoglobin 10.4 GM/DL Hematocrit 34.3 % Mean Corpuscular Volume 75.6 FL Mean Corpuscular Hemoglobin 22.9 PG Mean Corpuscular Hemoglobin Concent 30.3 % Red Cell Distribution Width 24.1 % Platelet Count 228 TH/MM3 Mean Platelet Volume 6.8 FL Neutrophils (%) (Auto) 39.9 % Lymphocytes (%) (Auto) 48.8 % Monocytes (%) (Auto) 8.4 % Eosinophils (%) (Auto) 1.6 % Basophils (%) (Auto) 1.3 % Neutrophils # (Auto) 1.3 TH/MM3 Lymphocytes # (Auto) 1.6 TH/MM3 Monocytes # (Auto) 0.3 TH/MM3 Eosinophils # (Auto) 0.1 TH/MM3 Basophils # (Auto) 0.0 TH/MM3 CBC Comment DIFF FINAL Differential Comment Prothrombin Time 10.0 SEC Prothromb Time International Ratio 1.0 RATIO Activated Partial Thromboplast Time 24.0 SEC Urine Color COLORLESS Urine Turbidity CLEAR Urine pH 5.0 Urine Specific [place] 1.002 Urine Protein NEG mg/dL Urine Glucose (UA) NEG mg/dL Urine Ketones NEG mg/dL Urine Occult Blood NEG Urine Nitrite NEG Urine Bilirubin NEG Urine Urobilinogen LESS THAN 2.0 MG/DL Urine Leukocyte Esterase NEG Urine WBC LESS THAN 1 /hpf Microscopic Urinalysis Comment CULT NOT INDICATED Blood Urea Nitrogen 11 MG/DL Creatinine 0.80 MG/DL Random Glucose 86 MG/DL Total Protein 7.8 GM/DL Albumin 3.6 GM/DL Calcium Level 8.7 MG/DL Alkaline Phosphatase 92 U/L Aspartate Amino Transf (AST/SGOT) 43 U/L Alanine Aminotransferase (ALT/SGPT) 21 U/L Total Bilirubin 0.3 MG/DL Sodium Level 137 MEQ/L Potassium Level 3.6 MEQ/L Chloride Level 101 MEQ/L Carbon Dioxide Level 23.5 MEQ/L Anion Gap 13 MEQ/L Estimat Glomerular Filtration Rate 120 ML/MIN Total Creatine Kinase 535 U/L Creatine Kinase MB 10.6 NG/ML Creatine Kinase MB % 2.0 % Troponin I LESS THAN 0.02 NG/ML Lipase 455 U/L MDM Medical Decision Making Medical Screen Exam Complete: Yes Emergency Medical Condition: Yes Medical Record Reviewed: Yes Differential Diagnosis Cholecystitis versus pancreatitis versus indigestion versus gastritis versus chest wall pain versus ACS Narrative Course 62-year-old male presents emergency department for evaluation. Workup is initiated in triage ambulance hallway. In review of the record, patient had a negative stress test in May 2017. Due to his epigastric and left upper quadrant tenderness. Abdominal pain workup is initiated. EKG is complete and reviewed by my attending with some differences compared to previous EKG. I will include cardiac enzymes as well. Laboratory Tests Test 11/02/17 21:05 White Blood Count 3.4 TH/MM3 Red Blood Count 4.54 MIL/MM3 Hemoglobin 10.4 GM/DL Hematocrit 34.3 % Mean Corpuscular Volume 75.6 FL Mean Corpuscular Hemoglobin 22.9 PG Mean Corpuscular Hemoglobin Concent 30.3 % Red Cell Distribution Width 24.1 % Platelet Count 228 TH/MM3 Mean Platelet Volume 6.8 FL Neutrophils (%) (Auto) 39.9 % Lymphocytes (%) (Auto) 48.8 % Monocytes (%) (Auto) 8.4 % Eosinophils (%) (Auto) 1.6 % Basophils (%) (Auto) 1.3 % Neutrophils # (Auto) 1.3 TH/MM3 Lymphocytes # (Auto) 1.6 TH/MM3 Monocytes # (Auto) 0.3 TH/MM3 Eosinophils # (Auto) 0.1 TH/MM3 Basophils # (Auto) 0.0 TH/MM3 CBC Comment DIFF FINAL Differential Comment Prothrombin Time 10.0 SEC Prothromb Time International Ratio 1.0 RATIO Activated Partial Thromboplast Time 24.0 SEC Urine Color COLORLESS Urine Turbidity CLEAR Urine pH 5.0 Urine Specific [place] 1.002 Urine Protein NEG mg/dL Urine Glucose (UA) NEG mg/dL Urine Ketones NEG mg/dL Urine Occult Blood NEG Urine Nitrite NEG Urine Bilirubin NEG Urine Urobilinogen LESS THAN 2.0 MG/DL Urine Leukocyte Esterase NEG Urine WBC LESS THAN 1 /hpf Microscopic Urinalysis Comment CULT NOT INDICATED Blood Urea Nitrogen 11 MG/DL Creatinine 0.80 MG/DL Random Glucose 86 MG/DL Total Protein 7.8 GM/DL Albumin 3.6 GM/DL Calcium Level 8.7 MG/DL Alkaline Phosphatase 92 U/L Aspartate Amino Transf (AST/SGOT) 43 U/L Alanine Aminotransferase (ALT/SGPT) 21 U/L Total Bilirubin 0.3 MG/DL Sodium Level 137 MEQ/L Potassium Level 3.6 MEQ/L Chloride Level 101 MEQ/L Carbon Dioxide Level 23.5 MEQ/L Anion Gap 13 MEQ/L Estimat Glomerular Filtration Rate 120 ML/MIN Lipase 455 U/L Lab findings are reviewed. Discussed the patient's identity physician. He'll be admitted observation to the chest pain center for serial cardiac enzymes and cardiac evaluation the morning. Diagnosis Primary Impression: Atypical chest pain Additional Impressions: Substance abuse Pancreatitis Qualified Codes: K86.0 - Alcohol-induced chronic pancreatitis Admitting Information Admitting Physician Requests: Observation Condition: Stable GodwinCrispin velascodilip COSTA Nov 02, 2017 19:29
[2017-11-02] MEDS ORDERED: SODIUM CHLORIDE 0.9% FLUSH 10 ML FLUSH IV FLUSH PRN ×2 (19:30→22:15)
[2017-11-02 21:08] VITALS: BP 159/71; PULSE 90; RESP 16; O2SAT 95
[2017-11-02 21:09] VITALS: O2SAT 95
[2017-11-02 21:24] LABS: BLOOD, URINE NEG (NEG); COMMENT (UR) CULT NOT INDICATED; CULTURE IF INDICATED CULT NOT INDICATED; GLUCOSE,URINE NEG (NEG); KETONE, URINE NEG (NEG); NITRITE,URINE NEG (NEG); URINE COLOR COLORLESS (YELLW/STRAW)
[2017-11-02 21:30] LABS: AUTOMATED NEUTROPHIL # 1.3 TH/MM3 (1.8-7.7); BASOPHIL % 1.3 % (0.0-2.0); EOSINOPHIL # 0.1 TH/MM3 (0-0.4); EOSINOPHIL % 1.6 % (0.0-4.0); HEMATOCRIT 34.3 % (39.0-51.0); HEMO FLAGS DIFF FINAL; LYMPH % 48.8 % (9.0-44.0); LYMPHOCYTE # 1.6 TH/MM3 (1.0-4.8); MEAN CELL VOLUME 75.6 FL (80.0-100.0); MEAN CORPUSCULAR HEMOGLOBIN 22.9 PG (27.0-34.0); MEAN CORPUSCULAR HGB CONC 30.3 % (32.0-36.0); MONO % 8.4 % (0.0-8.0); NEUT % 39.9 % (16.0-70.0); PLATELET COUNT 228 TH/MM3 (150-450); RED BLOOD COUNT 4.54 MIL/MM3 (4.50-5.90); RED CELL DISTRIBUTION WIDTH 24.1 % (11.6-17.2); WHITE BLOOD COUNT 3.4 TH/MM3 (4.0-11.0)
[2017-11-02] MEDS ORDERED: PANTOPRAZOLE SODIUM 40 MG VIAL IVP ONE (21:30)
[2017-11-02] MEDS ORDERED: ALUMINUM/MAGNESIUM/SIMETH 30 ML CUP PO ONE (21:30)
[2017-11-02] MEDS ORDERED: LIDOCAINE VISCOUS 2% SOLN 15 ML UDC PO ONE (21:30)
[2017-11-02 21:46] LABS: ANION GAP 13 MEQ/L (5-15); AST (GOT) 43 U/L (15-37); BICARBONATE 23.5 MEQ/L (21.0-32.0); BLOOD UREA NITROGEN 11 MG/DL (7-18); CHLORIDE 101 MEQ/L (98-107); GLOMERULAR FILTRATION RATE 120 ML/MIN (>89); POTASSIUM 3.6 MEQ/L (3.5-5.1); SODIUM (NA) 137 MEQ/L (136-145)
[2017-11-02 21:47] LABS: ALT (GPT) 21 U/L (12-78)
[2017-11-02 21:50] LABS: ALKALINE PHOSPHATASE 92 U/L (45-117); TOTAL BILIRUBIN ADULT 0.3 MG/DL (0.2-1.0)
[2017-11-02] MEDS ORDERED: NITROGLYCERIN 0.4 MG SL 25 TABS/BTL SL PRN (22:15)
[2017-11-02] MEDS ORDERED: ONDANSETRON HCL 4 MG/2 ML VIAL IV PUSH PRN (22:15)
[2017-11-02] MEDS ORDERED: ACETAMINOPHEN 500 MG CPLT PO PRN (22:15)
[2017-11-02 22:29] LABS: CREATINE KINASE 535 U/L (39-308)
[2017-11-02 22:52] LABS: CKMB 10.6 NG/ML (0.5-3.6)
--- NOTE | 2017-11-02 22:59 | RADRPT ---
EXAM DATE/TIME: 11/02/2017 22:27 [facility] COMPARISON: No previous studies available for comparison. INDICATIONS : Chest pain. MEDICAL HISTORY : Hypertension. SURGICAL HISTORY : None. ENCOUNTER: Subsequent ACUITY: 3 days PAIN SCORE: 4/10 LOCATION: Bilateral chest FINDINGS: A single view of the chest demonstrates mild basilar lung scarring. Pleural calcifications on the rig ht. No effusion. No pneumothorax. Heart size normal. CONCLUSION: 1. Mild basilar lung scarring or fibrosis. No acute disease. Bud Garcia MD on November 02, 2017 at 22:53 Board Certified Radiologist. This report was verified electronically.
[2017-11-03 00:15] VITALS: BP 147/68; PULSE 84; RESP 18; TEMP 98.4; O2SAT 98
[2017-11-03 00:45] VITALS: PULSE 83
[2017-11-03 01:10] LABS: CREATINE KINASE 437 U/L (39-308)
[2017-11-03 01:22] LABS: CKMB 8.4 NG/ML (0.5-3.6)
[2017-11-03 03:53] LABS: CREATINE KINASE 444 U/L (39-308)
[2017-11-03 04:05] LABS: CKMB 7.9 NG/ML (0.5-3.6)
[2017-11-03 04:22] VITALS: BP 119/70; PULSE 65; RESP 18; TEMP 98.5; O2SAT 97
[2017-11-03 04:23] VITALS: PULSE 82
[2017-11-03 06:51] VITALS: PULSE 91
[2017-11-03 08:10] VITALS: BP 153/74; PULSE 86; RESP 18; TEMP 98.6; O2SAT 98
[2017-11-03] MEDS ORDERED: SODIUM CHLORIDE 0.9% FLUSH 10 ML FLUSH IV FLUSH SCH (09:00)
--- NOTE | 2017-11-03 09:40 | HHI.HP ---
HPI Primary Care Physician No Primary Care Physician Chief Complaint Abdominal pain History of Present Illness This is a 62-year-old male that presents to ED with a complaint of abdominal pain. Points to epigastric region. States is been there essentially for the past month. Describes the discomfort as burning. States the abdominal pain is feeling a little better now. Admits to drinking on average 12 beers a day. Sometimes more. Occasionally has cocaine most recently 4 days ago. Has had some nausea but no emesis. Denies shortness of breath or diaphoresis. Denies dark or bloody stools. Denies having chest discomfort. Review of Systems General: Patient denies fevers, chills recent, and recent travel HEENT: Patient denies headache, sore throat, difficulty swallowing. Cardiovascular: Denies chest discomfort as mentioned above. Denies sensation of heart beating rapidly or irregularly. No syncope. Denies diaphoresis. Respiratory: Denies shortness of breath or inspirational chest discomfort. Denies coughing wheezing or hemoptysis. GI: Romulo's of abdominal pains and points to epigastric region. Has had nausea.. Patient denies vomiting, diarrhea, bloody stools. Musculoskeletal: Patient denies joint pain or edema. Denies calf pain or edema. Neurovascular: Patient denies numbness, tingling, weakness in extremities. Denies headache. Endocrine: Denies polyuria and polydipsia. Hematologic: Denies easy bruising. Skin: Denies rash or itching. Past Family Social History Allergies: Coded Allergies: No Known Allergies (Verified Adverse Reaction, Unknown, 11/02/17) Past Medical History Hypertension. Alcohol abuse. Cocaine abuse. Denies hyperlipidemia, diabetes, and known CAD. Past Surgical History Noncontributory. Denies having a cardiac catheterization. Reported Medications Reported Meds & Active Scripts Active Reported Triamterene-Hydrochlorothiazide 37.5-25 Mg Tab 1 Tab PO DAILY Active Ordered Medications Current Medications Medications (Trade) Dose Ordered Sig/Gordy Route Start Time Stop Time Status Last Admin (NS Flush) 2 ml UNSCH PRN IV FLUSH 11/02/17 19:30 (NS Flush) 2 ml UNSCH PRN IV FLUSH 11/02/17 22:15 (NS Flush) 2 ml BID IV FLUSH 11/03/17 09:00 11/03/17 08:46 (Tylenol) 500 mg Q4H PRN PO 12/11/17 22:15 (Zofran Inj) 4 mg Q6H PRN IV PUSH 11/02/17 22:15 (Nitrostat Sl) 0.4 mg Q5M PRN SL 11/02/17 22:15 Family History States that his brother had an NV at age 55. Social History Patient states he does not smoke cigarettes. He does use cocaine occasionally last being 4 days ago. He drinks on average 12 beers a day. Sometimes more. Its he is homeless. He is hitchhiking back to [place]. Physical Exam Vital Signs Vital Signs Date Time Temp Pulse Resp B/P (MAP) Pulse Ox O2 Delivery O2 Flow Rate FiO2 11/03/17 08:10 98.6 86 18 153/74 (100) 98 11/03/17 06:51 91 11/03/17 04:23 82 11/03/17 04:22 98.5 65 18 119/70 (86) 97 11/03/17 00:45 83 11/03/17 00:15 98.4 84 18 147/68 (94) 98 11/02/17 22:42 11/02/17 21:09 95 Room Air 11/02/17 21:08 90 16 159/71 (100) 95 Room Air 11/02/17 19:05 97.9 80 18 130/80 (97) 96 Physical Exam GENERAL: This is a well-nourished, well-developed patient, in no apparent distress. Patient speaks in clear complete sentences. Patient is pleasant. HEENT: Head is atraumatic and normocephalic. Neck is supple without lymphadenopathy and trachea is midline. No JVD or carotid bruits. CARDIOVASCULAR: Regular rate and rhythm without murmurs, gallops, or rubs. RESPIRATORY: Clear to auscultation. Breath sounds equal bilaterally. No wheezes , rales, or rhonchi. Chest wall is nontender. No use of accessory muscles. GASTROINTESTINAL: There is some epigastric tenderness. Abdomen is nondistended. Abdomen soft. No obvious pulsatile mass or bruit. No CVA tenderness. Strong femoral pulses bilaterally. Normal bowel sounds in all quadrants. MUSCULOSKELETAL: Patient is moving upper and lower extremities freely. No calf tenderness or edema, no Homans sign. Strong pulses in upper and lower extremities. NEUROLOGICAL: Patient is alert and oriented. Cranial nerves 2-12 are grossly intact. No focal deficits and speech is clear. SKIN: No rash and turgor is normal. Laboratory Laboratory Tests Test 11/02/17 21:05 11/03/17 00:30 11/03/17 03:05 11/03/17 08:27 White Blood Count 3.4 Red Blood Count 4.54 Hemoglobin 10.4 Hematocrit 34.3 Mean Corpuscular Volume 75.6 Mean Corpuscular Hemoglobin 22.9 Mean Corpuscular Hemoglobin Concent 30.3 Red Cell Distribution Width 24.1 Platelet Count 228 Mean Platelet Volume 6.8 Neutrophils (%) (Auto) 39.9 Lymphocytes (%) (Auto) 48.8 Monocytes (%) (Auto) 8.4 Eosinophils (%) (Auto) 1.6 Basophils (%) (Auto) 1.3 Neutrophils # (Auto) 1.3 Lymphocytes # (Auto) 1.6 Monocytes # (Auto) 0.3 Eosinophils # (Auto) 0.1 Basophils # (Auto) 0.0 CBC Comment DIFF FINAL Differential Comment Prothrombin Time 10.0 Prothromb Time International Ratio 1.0 Activated Partial Thromboplast Time 24.0 Urine Color COLORLESS Urine Turbidity CLEAR Urine pH 5.0 Urine Specific [place] 1.002 Urine Protein NEG Urine Glucose (UA) NEG Urine Ketones NEG Urine Occult Blood NEG Urine Nitrite NEG Urine Bilirubin NEG Urine Urobilinogen LESS THAN 2.0 Urine Leukocyte Esterase NEG Urine WBC LESS THAN 1 Microscopic Urinalysis Comment CULT NOT INDICATED Blood Urea Nitrogen 11 Creatinine 0.80 Random Glucose 86 Total Protein 7.8 Albumin 3.6 Calcium Level 8.7 Alkaline Phosphatase 92 Aspartate Amino Transf (AST/SGOT) 43 Alanine Aminotransferase (ALT/SGPT) 21 Total Bilirubin 0.3 Sodium Level 137 Potassium Level 3.6 Chloride Level 101 Carbon Dioxide Level 23.5 Anion Gap 13 Estimat Glomerular Filtration Rate 120 Total Creatine Kinase 535 437 444 Creatine Kinase MB 10.6 8.4 7.9 Creatine Kinase MB % 2.0 1.9 1.8 Troponin I LESS THAN 0.02 LESS THAN 0.02 LESS THAN 0.02 Lipase 455 Result Diagram: 11/02/17210411/02/172104 Imaging Vital Signs Date Time Temp Pulse Resp B/P (MAP) Pulse Ox O2 Delivery O2 Flow Rate FiO2 11/03/17 08:10 98.6 86 18 153/74 (100) 98 12/12/17 06:51 91 11/03/17 04:23 82 11/03/17 04:22 98.5 65 18 119/70 (86) 97 11/03/17 00:45 83 11/03/17 00:15 98.4 84 18 147/68 (94) 98 11/02/17 22:42 11/02/17 21:09 95 Room Air 11/02/17 21:08 90 16 159/71 (100) 95 Room Air 11/02/17 19:05 97.9 80 18 130/80 (97) 96 Last 48 hours Impressions Chest X-Ray 11/02/17 0000 Signed Impressions: Service Date/Time: Thursday, November 02, 2017 22:27 - CONCLUSION: 1. Mild basilar lung scarring or fibrosis. No acute disease. Bud Garcia MD Course EKGs have sinus rhythm with nonspecific T-wave changes. Caprini VTE Risk Assessment Caprini VTE Risk Assessment: No/Low Risk (score <= 1) Caprini Risk Assessment Model Point Value = 1 Point Value = 2 Point Value = 3 Point Value = 5 Age 41-60 Minor surgery BMI > 25 kg/m2 Swollen legs Varicose veins or History of unexplained or recurrent spontaneous Oral contraceptives or hormone replacement Sepsis (< 1 month) Serious lung disease, including pneumonia (< 1 month) Abnormal pulmonary function Acute myocardial infarction Congestive heart failure (< 1 month) History of inflammatory bowel disease Medical patient at bed rest Age 61-74 Arthroscopic surgery Major open surgery (> 45 min) Laparoscopic surgery (> 45 min) Malignancy Confined to bed (> 72 hours) Immobilizing plaster cast Central venous access Age >= 75 History of VTE Family history of VTE Factor V Leiden Prothrombin [id number] Lupus anticoagulant Anticardiolipin antibodies Elevated serum homocysteine Heparin-induced thrombocytopenia Other congenital or acquired thrombophilia Stroke (< 1 month) Elective arthroplasty Hip, pelvis, or leg fracture Acute spinal cord injury (< 1 month) Prophylaxis Regimen Total Risk Factor Score Risk Level Prophylaxis Regimen 0-1 Low Early ambulation 2 Moderate Order ONE of the following: *Sequential Compression Device (SCD) *Heparin 5000 units SQ BID 3-4 Higher Order ONE of the following medications: *Heparin 5000 units SQ TID *Enoxaparin/Lovenox 40 mg SQ daily (WT < 150 kg, CrCl > 30 mL/min) *Enoxaparin/Lovenox 30 mg SQ daily (WT < 150 kg, CrCl > 10-29 mL/min) *Enoxaparin/Lovenox 30 mg SQ BID (WT < 150 kg, CrCl > 30 mL/min) AND/OR *Sequential Compression Device (SCD) 5 or more Highest Order ONE of the following medications: *Heparin 5000 units SQ TID (Preferred with Epidurals) *Enoxaparin/Lovenox 40 mg SQ daily (WT < 150 kg, CrCl > 30 mL/min) *Enoxaparin/Lovenox 30 mg SQ daily (WT < 150 kg, CrCl > 10-29 mL/min) *Enoxaparin/Lovenox 30 mg SQ BID (WT < 150 kg, CrCl > 30 mL/min) AND *Sequential Compression Device (SCD) Assessment and Plan Assessment and Plan * Pancreatitis: Patient has a complaint of abdominal pain. Lipase elevated. He drinks excessive amounts of alcohol on a daily basis. He was given IV hydration in the ED. We will recheck a lipase to hopefully CAD trending downward. Above the stress test and if needed nonischemic will be discharged home with instruction to follow-up with PCP and to starting alcohol and stop using cocaine. Return to ED for interval issues. * Alcohol abuse: Patient has been counseled importance of knowing using alcohol , especially with the history pancreatitis. * Cocaine abuse: Patient has been counseled importance of no longer using cocaine. It was explained to him that it could kill him. He voices understanding. * Hypertension: We'll continue current medication. Patient is stable at this time. He is agreeable to this plan. Young Pickett Nov 03, 2017 09:40
[2017-11-03] MEDS ORDERED: TRIAMTERENE/HCTZ 37.5 MG/25 MG TAB PO SCH (10:30)
--- NOTE | 2017-11-03 10:41 | HHI.DCPOC ---
Discharge Care Plan Diagnosis: (1) Pancreatitis (2) Alcohol abuse (3) Substance abuse Goals to Promote Your Health * To prevent worsening of your condition and complications * To maintain your health at the optimal level Directions to Meet Your Goals Take your medications as prescribed Follow your dietary instruction Follow activity as directed Keep your appointments as scheduled Take your immunizations and boosters as scheduled If your symptoms worsen call your PCP, if no PCP go to Urgent Care Center or Emergency Room Smoking is Dangerous to Your Health. Avoid second hand smoke Call the 24-hour hour crisis hotline for domestic abuse at Young Pickett Nov 03, 2017 10:41
--- NOTE | 2017-11-03 17:25 | EKG ---
Date Performed: 11/02/2017 Time Performed: 20:16:03 PTAGE: 62 years EKG: Sinus rhythm POSSIBLE LEFT ATRIAL ENLARGEMENT NONSPECIFIC T-WAVE ABNORMALITY ABNORMAL ECG Since PREVIOUS TRACING , no significant change noted PREVIOUS TRACIN09/03/2015 11.25 DOCTOR: Phylicia Leblanc Interpretating Date/Time 11/03/2017 17:25:00
--- NOTE | 2017-11-03 17:28 | EKG ---
Date Performed: 11/02/2017 Time Performed: 23:17:06 PTAGE: 62 years EKG: Sinus rhythm NONSPECIFIC T-WAVE ABNORMALITY BORDERLINE ECG Since PREVIOUS TRACING , no significant change noted PREVIOUS TRACIN11/02/2017 20.16 DOCTOR: Phylicia Leblanc Interpretating Date/Time 11/03/2017 17:26:53
--- NOTE | 2017-11-03 17:29 | TR ---
Date Performed: 11/03/2017 Time Performed: 09:50:20 DOCTOR: Phylicia Leblanc DRUG LIST: CLINICAL HISTORY: REASON FOR TEST: REASON FOR ENDING: OBSERVATION: CONCLUSION: NAVEEN PROTOCOL. NO CP. TEST STOPPED AFTER EXCEEDING GOAL HR SECONDARY TO SOB AND LEG FATIGUE.Maximum JT=719 % Max HR Achieved=93.0% Maximum JX=347/78 Total Exercise Time=5:59 COMMENTS:
--- NOTE | 2017-11-03 17:29 | EKG ---
Date Performed: 11/03/2017 Time Performed: 03:28:05 PTAGE: 62 years EKG: Sinus rhythm NONSPECIFIC T-WAVE ABNORMALITY BORDERLINE ECG Since PREVIOUS TRACING , no significant change noted PREVIOUS TRACIN11/02/2017 23.17 DOCTOR: Phylicia Leblanc Interpretating Date/Time 11/03/2017 17:27:50
== END 2017-11-03 11:47 | disposition home or self-care (01) ==
LOC: NEPE 18:57 → NEDA 22:11 → NEPFCDU 22:50
PROVIDERS: ADMIT Internal Medicine Cardiovascular Disease; ATTEND Internal Medicine Cardiovascular Disease
DX: K85.90 Acute pancreatitis without necrosis or infection, unspecified (principal); K86.0 Alcohol-induced chronic pancreatitis; R94.31 Abnormal electrocardiogram [ECG] [EKG]; I10 Essential (primary) hypertension; K21.9 Gastro-esophageal reflux disease without esophagitis; F32.9 Major depressive disorder, single episode, unspecified; F14.10 Cocaine abuse, uncomplicated; M19.90 Unspecified osteoarthritis, unspecified site; Z59.0 Homelessness
CPT/HCPCS: 71010; 80053; 81001; 82550; 82552; 83690; 84484; 85025; 85610; 85730; 93005; 93017; 96374; 99285; C9113; G0378; J7030

== ENCOUNTER 2017-12-31 18:11 | Emergency (ER) | payer SELFPAY ==
[~2017-12-31] VITALS: Ht 167.6 cm; Wt 68.0 kg
[2017-12-31 18:29] VITALS: BP 130/69; PULSE 95; RESP 16; TEMP 97.9; O2SAT 96
[2017-12-31] MEDS ORDERED: SODIUM CHLORIDE 0.9% FLUSH 10 ML FLUSH IVF PRN (18:45)
[2017-12-31] MEDS ORDERED: SODIUM CHLORID 0.9% 500 ML INJ 500 ML IV ONE (18:45)
[2017-12-31] MEDS ORDERED: ASPIRIN 81 MG CHEW TAB PO ONE (18:45)
[2017-12-31] MEDS ORDERED: NITROGLYCERIN 2% OINT 1 GM PACKET TOP ONE (18:45)
--- NOTE | 2017-12-31 18:51 | PD ---
HPI Chief Complaint: Chest Pain Time Seen by Provider: 18:28 Travel History International Travel<30 days: No Contact w/Intl Traveler<30days: No Traveled to known affect area: No History of Present Illness HPI The patient is a 62-year-old Tori male who presents to the emergency department via EMS for chest pain. The patient states he is currently walking from [place], [place], to [place], [place]. The patient states he is homeless. The patient states he was hospitalized 3 weeks ago for pneumonia and then discharge, states he was admitted to the hospital and [place], [place]. The patient states he has been walking for the last 2 days, developed chest pain which is bilateral, intermittent, improved when he lies down at night and sleeps. He does complain of cough producing white sputum as well as occasional shortness of breath. He denies any nausea, vomiting, or abdominal pain. The patient is unsure if he had any recent stress test. He does have a history of hypertension and hyperlipidemia. He denies any history of tobacco use or diabetes. Symptoms are moderate. EMS did not provide aspirin as the patient states it causes gastric upset and occasional bleeding. He did not receive any nitroglycerin prior to arrival. PFSH Past Medical History Anemia: Yes Arthritis: Yes Autoimmune Disease: No Blood Disorders: No Depression: Yes Heart Rhythm Problems: Yes Cancer: No Cardiac Catheterization: No Cardiovascular Problems: Yes High Cholesterol: No Chest Pain: Yes Congestive Heart Failure: No Diabetes: No Diminished Hearing: No Endocrine: No Gastrointestinal Disorders: Yes (hernia) GERD: Yes Genitourinary: No Hiatal Hernia: Yes Hypertension: Yes Immune Disorder: No Implanted Vascular Access Dvce: No Musculoskeletal: Yes Neurologic: No Psychiatric: No Reproductive: No Respiratory: Yes Immunizations Current: Yes Ulcer: Yes (BLEEDING ULCERS FROM ETOH ABUSE) Past Surgical History AICD: No Arteriovenous Shunt: No Coronary Artery Bypass Graft: No Insulin Pump: No Joint Replacement: No Neurologic Surgery: No Pacemaker: No Other Surgery: Yes Family History Family Myocardial Infarction: Yes Social History Alcohol Use: Yes (DAILY 6 pack) Tobacco Use: No (QUIT 2011) Substance Use: No Allergies-Medications (Allergen,Severity, Reaction): Coded Allergies: No Known Allergies (Verified Allergy, Unknown, 11/03/17) Reported Meds & Prescriptions Reported Meds & Active Scripts Active Reported Triamterene-Hydrochlorothiazide 37.5-25 Mg Tab 1 Tab PO DAILY Review of Systems Except as stated in HPI: all other systems reviewed are Neg General / Constitutional: No: Fever HENT: No: Lightheadedness Cardiovascular: Positive: Chest Pain or Discomfort, No: Diaphoresis Respiratory: Positive: Cough, Shortness of Breath Gastrointestinal: No: Nausea, Vomiting Musculoskeletal: No: Myalgias Neurologic: No: Dizziness Physical Exam Narrative GENERAL: Awake, alert, nontoxic-appearing 8-year-old male who appears his stated age and is in no acute respiratory distress. SKIN: Focused skin assessment warm/dry. HEAD: Atraumatic. Normocephalic. EYES: Pupils equal and round. No scleral icterus. No injection or drainage. ENT: No nasal bleeding or discharge. Mucous membranes pink and moist. NECK: Trachea midline. No JVD. CARDIOVASCULAR: Regular rate and rhythm. No murmur appreciated. RESPIRATORY: No accessory muscle use. Clear to auscultation. Breath sounds equal bilaterally. GASTROINTESTINAL: Abdomen soft, non-tender, nondistended. No rebound tenderness. MUSCULOSKELETAL: No obvious deformities. No clubbing. No cyanosis. No edema. NEUROLOGICAL: Awake and alert. No obvious cranial nerve deficits. Motor grossly within normal limits. Normal speech. Nonfocal. PSYCHIATRIC: Appropriate mood and affect; insight and judgment normal. Data Data Last Documented VS Vital Signs Date Time Temp Pulse Resp B/P (MAP) Pulse Ox O2 Delivery O2 Flow Rate FiO2 12/31/17 18:30 103 16 12/31/17 18:29 97.9 130/69 (89) 96 Orders Orders Electrocardiogram (12/31/17 18:38) Ckmb (Isoenzyme) Profile (12/31/17 18:38) Complete Blood Count With Diff (12/31/17 18:38) Comprehensive Metabolic Panel (12/31/17 18:38) Magnesium (Mg) (12/31/17 18:38) Prothrombin Time / Inr (Pt) (12/31/17 18:38) Act Partial Throm Time (Ptt) (12/31/17 18:38) Troponin I (12/31/17 18:38) Lipase (12/31/17 18:38) Chest, Single Ap (12/31/17 18:38) Ecg Monitoring (12/31/17 18:38) Bilateral Bp Monitoring (12/31/17 18:38) Iv Access Insert/Monitor (12/31/17 18:38) Oximetry (12/31/17 18:38) Oxygen Administration (12/31/17 18:38) Aspirin Chew (Aspirin Chew) (12/31/17 18:45) Nitroglycerin 2% Oint (Nitroglycerin 2% (12/31/17 18:45) Sodium Chloride 0.9% Flush (Ns Flush) (12/31/17 18:45) Sodium Chlorid 0.9% 500 Ml Inj (Ns 500 M (12/31/17 18:45) Alcohol (Ethanol) (12/31/17 18:38) MDM Medical Decision Making Medical Screen Exam Complete: Yes Emergency Medical Condition: Yes Medical Record Reviewed: Yes Interpretation(s) EKG reveals normal sinus rhythm with a rate in 97. Inverted T-wave in lead 3. Differential Diagnosis Differential diagnosis includes acute coronary syndrome, pneumonia, GERD, esophageal spasm, pancreatitis, alcohol intoxication, malingering. Narrative Course IV was established, labs are drawn and sent, and the patient was placed on cardiac telemetry monitoring and continuous pulse oximetry monitoring. EKG was ordered and interpreted. Chest x-ray was obtained. I reviewed the EMR, the patient had a stress test in the chest pain Center on November 03, 2017 which was negative after serial troponins were negative. The patient has atypical symptoms. I believe the patient can have 2 sets of enzymes and if negative can be discharged, if they are positive he will need admission. The patient was signed out to the oncoming physician at 7 PM. Diagnosis Primary Impression: Atypical chest pain Condition: Stable Nick Milton MD Dec 31, 2017 18:51
--- NOTE | 2017-12-31 19:07 | RADRPT ---
EXAM DATE/TIME: 12/31/2017 18:50 [facility] COMPARISON: CHEST SINGLE AP, November 02, 2017, 22:27. INDICATIONS : Chest pain. MEDICAL HISTORY : Hypertension. Hypercholesterolemia. SURGICAL HISTORY : None. ENCOUNTER: Initial ACUITY: 1 day PAIN SCORE: 9/10 LOCATION: Bilateral FINDINGS: Mild bibasilar consolidation and small effusions have developed. No pneumothorax. Heart size stable, within normal limits. CONCLUSION: Mild bibasilar consolidation and small effusions. Luca Cerna MD on December 31, 2017 at 19:05 Board Certified Radiologist. This report was verified electronically.
[2017-12-31] MEDS ORDERED: SUCR1TAB PO (19:13)
[2017-12-31] MEDS ORDERED: PROT40TA PO (19:13)
[2017-12-31 19:15] VITALS: O2SAT 100
[2017-12-31 19:20] LABS: PROTHROMBIN TIME - PATIENT 9.9 SEC (9.8-11.6)
[2017-12-31 19:22] LABS: ALBUMIN 3.5 GM/DL (3.4-5.0); AST (GOT) 35 U/L (15-37); BLOOD UREA NITROGEN 8 MG/DL (7-18); CALCIUM 8.5 MG/DL (8.5-10.1); CHLORIDE 105 MEQ/L (98-107); CREATININE 1.07 MG/DL (0.60-1.30); GLOMERULAR FILTRATION RATE 85 ML/MIN (>89); GLUCOSE,RANDOM 90 MG/DL (74-106); SODIUM (NA) 140 MEQ/L (136-145)
[2017-12-31 19:24] LABS: ALT (GPT) 20 U/L (12-78); AUTOMATED NEUTROPHIL # 0.8 TH/MM3 (1.8-7.7); BASOPHIL # 0.1 TH/MM3 (0-0.2); BASOPHIL % 2.3 % (0.0-2.0); EOSINOPHIL % 1.6 % (0.0-4.0); HEMATOCRIT 28.9 % (39.0-51.0); HEMOGLOBIN 9.1 GM/DL (13.0-17.0); LYMPHOCYTE # 1.5 TH/MM3 (1.0-4.8); MEAN CELL VOLUME 73.1 FL (80.0-100.0); MEAN CORPUSCULAR HEMOGLOBIN 23.1 PG (27.0-34.0); MEAN CORPUSCULAR HGB CONC 31.6 % (32.0-36.0); MEAN PLATELET VOLUME 6.3 FL (7.0-11.0); MONO % 11.9 % (0.0-8.0); MONOCYTE # 0.3 TH/MM3 (0-0.9); NEUT % 30.2 % (16.0-70.0); PLATELET COUNT 327 TH/MM3 (150-450); RED BLOOD COUNT 3.95 MIL/MM3 (4.50-5.90); RED CELL DISTRIBUTION WIDTH 23.1 % (11.6-17.2); WHITE BLOOD COUNT 2.7 TH/MM3 (4.0-11.0)
[2017-12-31 19:28] LABS: ALKALINE PHOSPHATASE 96 U/L (45-117); TOTAL BILIRUBIN ADULT 0.1 MG/DL (0.2-1.0); TOTAL PROTEIN 7.4 GM/DL (6.4-8.2); TROPONIN I LESS THAN 0.02 NG/ML (0.02-0.05)
[2017-12-31 20:06] LABS: BASOPHILS 3 % (0-2); LYMPHOCYTES 54 % (9-44); MONOCYTES 2 % (0-8); POLYS (SEG NEUTROPHILS) 37 % (16-70)
[2017-12-31 20:08] LABS: KERATOCYTES OCC (NORMAL); OVALOCYTES 2+ (NORMAL)
[2017-12-31 20:46] VITALS: BP 137/72; PULSE 115; RESP 20; O2SAT 97
[2018-01-01 02:00] VITALS: BP 141/68; PULSE 94; RESP 16; O2SAT 98
[2018-01-01 05:00] VITALS: BP 154/64; PULSE 88; RESP 16; O2SAT 99
--- NOTE | 2018-01-01 05:53 | PD ---
Physical Exam Narrative Patient signed out to me at shift change, pending laboratory examinations to evaluate patient's possible diagnosis of chest discomfort. Patient denies any chest complaints at this time. She states he has been walking from [facility], and has had no change x-rays tolerance. As per Dr. Milton's history and review of the medical record, patient has had a recent cardiac stress test that was normal. Data Data Last Documented VS Vital Signs Date Time Temp Pulse Resp B/P (MAP) Pulse Ox O2 Delivery O2 Flow Rate FiO2 12/31/17 20:46 115 20 137/72 (93) 97 Room Air 12/31/17 18:29 97.9 Orders Orders Electrocardiogram (12/31/17 18:38) Ckmb (Isoenzyme) Profile (12/31/17 18:38) Complete Blood Count With Diff (12/31/17 18:38) Comprehensive Metabolic Panel (12/31/17 18:38) Magnesium (Mg) (12/31/17 18:38) Prothrombin Time / Inr (Pt) (12/31/17 18:38) Act Partial Throm Time (Ptt) (12/31/17 18:38) Troponin I (12/31/17 18:38) Lipase (12/31/17 18:38) Chest, Single Ap (12/31/17 18:38) Ecg Monitoring (12/31/17 18:38) Bilateral Bp Monitoring (12/31/17 18:38) Iv Access Insert/Monitor (12/31/17 18:38) Oximetry (12/31/17 18:38) Oxygen Administration (12/31/17 18:38) Aspirin Chew (Aspirin Chew) (12/31/17 18:45) Nitroglycerin 2% Oint (Nitroglycerin 2% (12/31/17 18:45) Sodium Chloride 0.9% Flush (Ns Flush) (12/31/17 18:45) Sodium Chlorid 0.9% 500 Ml Inj (Ns 500 M (12/31/17 18:45) Alcohol (Ethanol) (12/31/17 18:38) CKMB (12/31/17 18:45) CKMB% (12/31/17 18:45) Troponin I (12/31/17 22:06) Labs Laboratory Tests Test 12/31/17 18:45 12/31/17 22:13 White Blood Count 2.7 TH/MM3 Red Blood Count 3.95 MIL/MM3 Hemoglobin 9.1 GM/DL Hematocrit 28.9 % Mean Corpuscular Volume 73.1 FL Mean Corpuscular Hemoglobin 23.1 PG Mean Corpuscular Hemoglobin Concent 31.6 % Red Cell Distribution Width 23.1 % Platelet Count 327 TH/MM3 Mean Platelet Volume 6.3 FL Neutrophils (%) (Auto) 30.2 % Lymphocytes (%) (Auto) 54.0 % Monocytes (%) (Auto) 11.9 % Eosinophils (%) (Auto) 1.6 % Basophils (%) (Auto) 2.3 % Neutrophils # (Auto) 0.8 TH/MM3 Lymphocytes # (Auto) 1.5 TH/MM3 Monocytes # (Auto) 0.3 TH/MM3 Eosinophils # (Auto) 0.0 TH/MM3 Basophils # (Auto) 0.1 TH/MM3 CBC Comment AUTO DIFF Differential Total Cells Counted 100 Neutrophils % (Manual) 37 % Lymphocytes % 54 % Monocytes % 2 % Eosinophils % 4 % Basophils % 3 % Neutrophils # (Manual) 1.0 TH/MM3 Differential Comment FINAL DIFF MANUAL Platelet Estimate NORMAL Platelet Morphology Comment NORMAL Ovalocytes 2+ Keratocytes OCC Prothrombin Time 9.9 SEC Prothromb Time International Ratio 1.0 RATIO Activated Partial Thromboplast Time 24.5 SEC Blood Urea Nitrogen 8 MG/DL Creatinine 1.07 MG/DL Random Glucose 90 MG/DL Total Protein 7.4 GM/DL Albumin 3.5 GM/DL Calcium Level 8.5 MG/DL Magnesium Level 2.0 MG/DL Alkaline Phosphatase 96 U/L Aspartate Amino Transf (AST/SGOT) 35 U/L Alanine Aminotransferase (ALT/SGPT) 20 U/L Total Bilirubin 0.1 MG/DL Sodium Level 140 MEQ/L Potassium Level 3.8 MEQ/L Chloride Level 105 MEQ/L Carbon Dioxide Level 27.0 MEQ/L Anion Gap 8 MEQ/L Estimat Glomerular Filtration Rate 85 ML/MIN Total Creatine Kinase 482 U/L Creatine Kinase MB 6.9 NG/ML Creatine Kinase MB % 1.4 % Troponin I LESS THAN 0.02 NG/ML LESS THAN 0.02 NG/ML Lipase 418 U/L Ethyl Alcohol Level 258 MG/DL [facility] Medical Record Reviewed: Yes Supervised Visit with NEREIDA: Yes Differential Diagnosis Alcohol intoxication, atypical chest pain Narrative Course Patient observed in the ED overnight. Patient had no further complaints of chest pain, is resting comfortably. Patient's laboratory examinations reviewed , and troponin 0 hours 3 hours normal. Patient markedly elevated blood alcohol level. Patient metabolized alcohol well, awakened in the a.m. with normal narrow-based gait, nonslurred speech, advocating for himself, wishing to be discharged. Patient had no further complaints of chest pain Diagnosis Primary Impression: Atypical chest pain Additional Impression: Alcohol intoxication Qualified Codes: F10.920 - Alcohol use, unspecified with intoxication, uncomplicated Patient Instructions: Chest Pain (ED), General Instructions Additional Instruction: Follow up with [facility]. Drink alcohol only in moderation. Return for worsening Disposition: 01 DISCHARGE HOME Condition: Stable Stanton Fitzgerald MD Jan 01, 2018 05:53
--- NOTE | 2018-01-01 14:55 | EKG ---
Date Performed: 12/31/2017 Time Performed: 18:29:42 PTAGE: 62 years EKG: Sinus rhythm POSSIBLE LEFT ATRIAL ENLARGEMENT NONSPECIFIC T-WAVE ABNORMALITY Since previous tracing, no significa nt change noted BORDERLINE ECG PREVIOUS TRACING : 11/03/2017 03.28 DOCTOR: Didi Laurent Interpretating Date/Time 01/01/2018 14:53:55
== END 2018-01-01 06:12 | disposition home or self-care (01) ==
LOC: NEPE 18:11
DX: R07.89 Other chest pain (principal); R06.02 Shortness of breath; I10 Essential (primary) hypertension; F10.129 Alcohol abuse with intoxication, unspecified; Y90.8 Blood alcohol level of 240 mg/100 ml or more; Z79.899 Other long term (current) drug therapy; Z87.891 Personal history of nicotine dependence
CPT/HCPCS: 71045; 80053; 80307; 82550; 82552; 83690; 83735; 84484; 85007; 85027; 85610; 85730; 93005; 96360; 99285; J7040

== ENCOUNTER 2018-01-01 17:12 | Emergency (ER) | payer SELFPAY ==
[~2018-01-01] VITALS: Ht 167.6 cm; Wt 74.0 kg
[~2018-01-01 17:12] MED LIST changes: +PROT40TA PO; +SUCR1TAB PO
[2018-01-01 17:25] VITALS: BP 114/72; PULSE 110; RESP 16; TEMP 98.5; O2SAT 96
[2018-01-01] MEDS ORDERED: SODIUM CHLORIDE 0.9% FLUSH 10 ML FLUSH IVF PRN (17:45)
[2018-01-01] MEDS ORDERED: SODIUM CHLOR 0.9% 1000 ML INJ 1,000 ML IV ONE (17:45)
[2018-01-01 17:48] VITALS: O2SAT 96
[2018-01-01 18:08] LABS: HEMATOCRIT 25.7 % (39.0-51.0); HEMOGLOBIN 8.2 GM/DL (13.0-17.0); MEAN CELL VOLUME 72.1 FL (80.0-100.0); MEAN CORPUSCULAR HGB CONC 31.9 % (32.0-36.0); MEAN PLATELET VOLUME 6.2 FL (7.0-11.0); PLATELET COUNT 302 TH/MM3 (150-450); RED BLOOD COUNT 3.57 MIL/MM3 (4.50-5.90); RED CELL DISTRIBUTION WIDTH 22.1 % (11.6-17.2); WHITE BLOOD COUNT 3.4 TH/MM3 (4.0-11.0)
[2018-01-01 18:16] LABS: CHLORIDE 106 MEQ/L (98-107); SODIUM (NA) 138 MEQ/L (136-145)
[2018-01-01 18:19] LABS: CALCIUM 7.7 MG/DL (8.5-10.1)
[2018-01-01 18:20] LABS: ALBUMIN 3.3 GM/DL (3.4-5.0); BICARBONATE 24.3 MEQ/L (21.0-32.0); BLOOD UREA NITROGEN 8 MG/DL (7-18); GLUCOSE,RANDOM 86 MG/DL (74-106)
[2018-01-01 18:23] LABS: ALT (GPT) 21 U/L (12-78); AST (GOT) 35 U/L (15-37); GLOMERULAR FILTRATION RATE 120 ML/MIN (>89)
[2018-01-01 18:25] LABS: TOTAL BILIRUBIN ADULT 0.1 MG/DL (0.2-1.0); TOTAL PROTEIN 6.9 GM/DL (6.4-8.2)
[2018-01-01 18:26] LABS: ALKALINE PHOSPHATASE 83 U/L (45-117)
[2018-01-01 18:48] LABS: TROPONIN I LESS THAN 0.02 NG/ML (0.02-0.05)
--- NOTE | 2018-01-01 18:56 | PD ---
HPI Chief Complaint: Chest Pain Time Seen by Provider: 17:30 Travel History International Travel<30 days: No Contact w/Intl Traveler<30days: No Traveled to known affect area: No History of Present Illness HPI Patient is a 62-year-old pleasant homeless male who presents emergency department for evaluation of sharp chest pain throughout his entire chest worsens with inspiration. Patient states he is currently walking from [place] to [place] where he resides, he presented to the [facility] last night for very similar presentation. It was documented at that time that he had negative stress test recently. Patient appears fairly comfortable, states that he also had recent pneumonia which she has finished treatment for. He denies any shortness of breath cough or congestion. Does endorse drinking 6-7 beers tonight. Denies any fevers. States symptoms are moderate, chest, no radiation, context and associated sinus symptoms as above. Pain for the last hour. PFSH Past Medical History Anemia: Yes Arthritis: Yes Autoimmune Disease: No Blood Disorders: No Depression: Yes Heart Rhythm Problems: Yes Cancer: No Cardiac Catheterization: No Cardiovascular Problems: Yes High Cholesterol: No Chemotherapy: No Chest Pain: Yes Congestive Heart Failure: No Diabetes: No Diminished Hearing: No Endocrine: No Gastrointestinal Disorders: Yes (hernia) GERD: Yes Genitourinary: No Hiatal Hernia: Yes Heparin Induced Thrombocytopen: No Hypertension: Yes Immune Disorder: No Implanted Vascular Access Dvce: No Musculoskeletal: Yes Neurologic: No Psychiatric: No Reproductive: No Respiratory: Yes Immunizations Current: Yes Radiation Therapy: No Ulcer: Yes (BLEEDING ULCERS FROM ETOH ABUSE) Past Surgical History Abdominal Surgery: No AICD: No Arteriovenous Shunt: No Cardiac Surgery: No Coronary Artery Bypass Graft: No Ear Surgery: No Endocrine Surgery: No Eye Surgery: No Genitourinary Surgery: No Gynecologic Surgery: No Insulin Pump: No Joint Replacement: No Neurologic Surgery: No Oral Surgery: No Pacemaker: No Thoracic Surgery: No Other Surgery: Yes Family History Family Myocardial Infarction: Yes Social History Alcohol Use: Yes (DAILY 6 pack) Tobacco Use: No (QUIT 2011) Substance Use: No Allergies-Medications (Allergen,Severity, Reaction): Coded Allergies: No Known Allergies (Verified Allergy, Unknown, 01/01/18) Reported Meds & Prescriptions Reported Meds & Active Scripts Active Reported Protonix (Pantoprazole Sodium) 40 Mg Tab 40 Mg PO DAILY Sucralfate 1 Gram Tab 1 Gm PO QID on empty stomach Triamterene-Hydrochlorothiazide 37.5-25 Mg Tab 1 Tab PO DAILY Review of Systems Except as stated in HPI: all other systems reviewed are Neg Physical Exam Narrative GENERAL: WD/WN pleasantly intoxicated. SKIN: Focused skin assessment warm/dry. HEAD: Atraumatic. Normocephalic. EYES: Pupils equal and round. No scleral icterus. No injection or drainage. ENT: No nasal bleeding or discharge. Mucous membranes pink and moist. NECK: Trachea midline. No JVD. CARDIOVASCULAR: Regular rate and rhythm. No murmur appreciated. RESPIRATORY: No accessory muscle use. Clear to auscultation. Breath sounds equal bilaterally. GASTROINTESTINAL: Abdomen soft, non-tender, nondistended. Hepatic and splenic margins not palpable. MUSCULOSKELETAL: No obvious deformities. No clubbing. No cyanosis. No edema. NEUROLOGICAL: Awake and alert. No obvious cranial nerve deficits. Motor grossly within normal limits. Normal speech. PSYCHIATRIC: Appropriate mood and affect; insight and judgment normal. Data Data Last Documented VS Vital Signs Date Time Temp Pulse Resp B/P (MAP) Pulse Ox O2 Delivery O2 Flow Rate FiO2 01/01/18 21:15 85 18 136/80 (98) 98 01/01/18 20:17 Room Air 01/01/18 17:25 98.5 Orders Orders Ckmb (Isoenzyme) Profile (01/01/18 17:37) Complete Blood Count With Diff (01/01/18 17:37) Comprehensive Metabolic Panel (01/01/18 17:37) Ecg Monitoring (01/01/18 17:37) Iv Access Insert/Monitor (01/01/18 17:37) Oximetry (01/01/18 17:37) Sodium Chlor 0.9% 1000 Ml Inj (Ns 1000 M (01/01/18 17:45) Oxygen Administration (01/01/18 17:37) Sodium Chloride 0.9% Flush (Ns Flush) (01/01/18 17:45) Alcohol (Ethanol) (01/01/18 17:38) Blood Gas Venous (Vbg) (01/01/18 18:13) Troponin I (01/01/18 17:55) CKMB (01/01/18 17:55) CKMB% (01/01/18 17:55) Ckmb (Isoenzyme) Profile (01/01/18 19:41) Troponin I (01/01/18 19:41) CKMB (01/01/18 20:00) CKMB% (01/01/18 20:00) Electrocardiogram (01/01/18 17:13) Labs Laboratory Tests Test 01/01/18 17:55 01/01/18 18:16 01/01/18 20:00 White Blood Count 3.4 TH/MM3 Red Blood Count 3.57 MIL/MM3 Hemoglobin 8.2 GM/DL Hematocrit 25.7 % Mean Corpuscular Volume 72.1 FL Mean Corpuscular Hemoglobin 23.0 PG Mean Corpuscular Hemoglobin Concent 31.9 % Red Cell Distribution Width 22.1 % Platelet Count 302 TH/MM3 Mean Platelet Volume 6.2 FL CBC Comment AUTO DIFF Neutrophils % (Manual) 39 % Band Neutrophils % 0 % Lymphocytes % 56 % Monocytes % 3 % Eosinophils % 2 % Neutrophils # (Manual) 1.3 TH/MM3 Differential Comment FINAL DIFF MANUAL Platelet Estimate NORMAL Platelet Morphology Comment NORMAL Blood Urea Nitrogen 8 MG/DL Creatinine 0.80 MG/DL Random Glucose 86 MG/DL Total Protein 6.9 GM/DL Albumin 3.3 GM/DL Calcium Level 7.7 MG/DL Alkaline Phosphatase 83 U/L Aspartate Amino Transf (AST/SGOT) 35 U/L Alanine Aminotransferase (ALT/SGPT) 21 U/L Total Bilirubin 0.1 MG/DL Sodium Level 138 MEQ/L Potassium Level 3.8 MEQ/L Chloride Level 106 MEQ/L Carbon Dioxide Level 24.3 MEQ/L Anion Gap 8 MEQ/L Estimat Glomerular Filtration Rate 120 ML/MIN Total Creatine Kinase 373 U/L 324 U/L Creatine Kinase MB 5.1 NG/ML 4.2 NG/ML Creatine Kinase MB % 1.4 % 1.3 % Troponin I LESS THAN 0.02 NG/ML LESS THAN 0.02 NG/ML Ethyl Alcohol Level 338 MG/DL Blood Gas Puncture Site LINE Blood Gas Patient Temperature 98.6 Venous Blood pH 7.43 Venous Blood Partial Pressure CO2 36 mmHg Venous Blood Partial Pressure O2 67 mmHg Venous Blood HCO3 24 mmol/L Venous Blood Oxygen Saturation 89 % Venous Blood Oxygen Content 10.1 Vol % Venous Blood Base Excess -0.2 mmol/L Blood Gas Inspired Oxygen 21 % MDM Medical Decision Making Medical Screen Exam Complete: Yes Emergency Medical Condition: Yes Differential Diagnosis ACS unlikely, DE likely, alcohol intoxication, gastritis, reflux Narrative Course Patient was roomed in the emergency department, he appears to be intoxicated, has very similar presentation to yesterday at the main hospital, documentation then states he recently had a stress test which was negative, troponins were sent twice there which were negative. His chest pain presentation is highly atypical. Very difficult IV start, I attempted an ultrasound-guided IV in the left arm and the flow from this catheter was quite brisk. The blood was thin as well. Great care was taken not to inject air into this vein, the patient jumped during placement of this vein and the vein I chose to cannulate was running along side the artery. Unsure of whether or not this is arterial line or venous a blood gas was obtained from this line based on the level of oxygenation on room air I cannot confirm that this is a venous line based on this ABG and therefore the line was removed. Patient's pulses motor and sensory were rechecked several times after removal of the catheter and remained intact. Cap refill was brisk in all 5 digits. A repeat US guided IV was started in the right arm away from an artery and yielded similiar blood characteristics. I think this is due to his level of anemia and alcohol level. Initial troponin pending, i think that if two troponins are negative he can be discharged safely once clinically sober. Will defer to Dr. Read at 1900 shift change. Tomy Tang MD Jan 01, 2018 18:56
[2018-01-01 19:00] VITALS: BP 138/81; PULSE 89; RESP 16; O2SAT 97
[2018-01-01 19:13] LABS: BANDS 0 % (0-6); LYMPHOCYTES 56 % (9-44); MONOCYTES 3 % (0-8); NEUTROPHIL # MANUAL DIFF 1.3 TH/MM3 (1.8-7.7); POLYS (SEG NEUTROPHILS) 39 % (16-70)
[2018-01-01 20:17] VITALS: BP 111/73; PULSE 85; RESP 16; O2SAT 97
[2018-01-01 20:27] LABS: TROPONIN I LESS THAN 0.02 NG/ML (0.02-0.05)
--- NOTE | 2018-01-01 21:01 | PD ---
Physical Exam Time Seen by Provider: 20:[address] Tang left this patient with me to check the results of the cardiac enzyme repeat testing and to discharge if normal. Data Data Last Documented VS Vital Signs Date Time Temp Pulse Resp B/P (MAP) Pulse Ox O2 Delivery O2 Flow Rate FiO2 01/01/18 20:17 85 16 111/73 (86) 97 Room Air 01/01/18 17:25 98.5 Orders Orders Ckmb (Isoenzyme) Profile (01/01/18 17:37) Complete Blood Count With Diff (01/01/18 17:37) Comprehensive Metabolic Panel (01/01/18 17:37) Ecg Monitoring (01/01/18 17:37) Iv Access Insert/Monitor (01/01/18 17:37) Oximetry (01/01/18 17:37) Sodium Chlor 0.9% 1000 Ml Inj (Ns 1000 M (01/01/18 17:45) Oxygen Administration (01/01/18 17:37) Sodium Chloride 0.9% Flush (Ns Flush) (01/01/18 17:45) Alcohol (Ethanol) (01/01/18 17:38) Blood Gas Venous (Vbg) (01/01/18 18:13) Troponin I (01/01/18 17:55) CKMB (01/01/18 17:55) CKMB% (01/01/18 17:55) Ckmb (Isoenzyme) Profile (01/01/18 19:41) Troponin I (01/01/18 19:41) CKMB (01/01/18 20:00) CKMB% (01/01/18 20:00) Labs Laboratory Tests Test 01/01/18 17:55 01/01/18 18:16 01/01/18 20:00 White Blood Count 3.4 TH/MM3 Red Blood Count 3.57 MIL/MM3 Hemoglobin 8.2 GM/DL Hematocrit 25.7 % Mean Corpuscular Volume 72.1 FL Mean Corpuscular Hemoglobin 23.0 PG Mean Corpuscular Hemoglobin Concent 31.9 % Red Cell Distribution Width 22.1 % Platelet Count 302 TH/MM3 Mean Platelet Volume 6.2 FL CBC Comment AUTO DIFF Neutrophils % (Manual) 39 % Band Neutrophils % 0 % Lymphocytes % 56 % Monocytes % 3 % Eosinophils % 2 % Neutrophils # (Manual) 1.3 TH/MM3 Differential Comment FINAL DIFF MANUAL Platelet Estimate NORMAL Platelet Morphology Comment NORMAL Blood Urea Nitrogen 8 MG/DL Creatinine 0.80 MG/DL Random Glucose 86 MG/DL Total Protein 6.9 GM/DL Albumin 3.3 GM/DL Calcium Level 7.7 MG/DL Alkaline Phosphatase 83 U/L Aspartate Amino Transf (AST/SGOT) 35 U/L Alanine Aminotransferase (ALT/SGPT) 21 U/L Total Bilirubin 0.1 MG/DL Sodium Level 138 MEQ/L Potassium Level 3.8 MEQ/L Chloride Level 106 MEQ/L Carbon Dioxide Level 24.3 MEQ/L Anion Gap 8 MEQ/L Estimat Glomerular Filtration Rate 120 ML/MIN Total Creatine Kinase 373 U/L 324 U/L Creatine Kinase MB 5.1 NG/ML 4.2 NG/ML Creatine Kinase MB % 1.4 % 1.3 % Troponin I LESS THAN 0.02 NG/ML LESS THAN 0.02 NG/ML Ethyl Alcohol Level 338 MG/DL Blood Gas Puncture Site LINE Blood Gas Patient Temperature 98.6 Venous Blood pH 7.43 Venous Blood Partial Pressure CO2 36 mmHg Venous Blood Partial Pressure O2 67 mmHg Venous Blood HCO3 24 mmol/L Venous Blood Oxygen Saturation 89 % Venous Blood Oxygen Content 10.1 Vol % Venous Blood Base Excess -0.2 mmol/L Blood Gas Inspired Oxygen 21 % MDM Medical Record Reviewed: Yes Supervised Visit with NEREIDA: Yes Interpretation(s) The repeat troponin I and CK-MB percentage are normal. The alcohol level was 338. Differential Diagnosis Alcohol intoxication, atypical chest pain, acute coronary syndrome-unlikely Narrative Course The patient has atypical chest pain. He also has alcohol intoxication. It is now 9 PM and the patient can walk normally. He will but he wants to be discharged and wants to walk out. He Will be discharged. The patient is homeless. Diagnosis Primary Impression: Atypical chest pain Additional Impression: Alcohol intoxication Additional Instruction: You need to discontinue alcohol. Follow-up with [facility] in order to let them help you discontinue alcohol. Med/Other Pt SpecificInfo: No Change to Meds Disposition: 01 DISCHARGE HOME Condition: Stable Rufino Read MD Jan 01, 2018 21:01
[2018-01-01 21:15] VITALS: BP 136/80
--- NOTE | 2018-01-02 23:54 | EKG ---
Date Performed: 01/01/2018 Time Performed: 17:13:22 PTAGE: 62 years EKG: SINUS TACHYCARDIA ABNORMAL RHYTHM ECG INTERPRETATION BASED ON A DEFAULT AGE OF 42 YEARS PREVIOUS TRACING : 12/31/2017 18.29 Compared to prior tracing, rate has increased DOCTOR: Eleazar Ruffin Interpretating Date/Time 01/02/2018 23:53:04
== END 2018-01-01 21:20 | disposition home or self-care (01) ==
LOC: PHED 17:12
DX: R07.89 Other chest pain (principal); F10.129 Alcohol abuse with intoxication, unspecified; F32.9 Major depressive disorder, single episode, unspecified; K21.9 Gastro-esophageal reflux disease without esophagitis; I10 Essential (primary) hypertension; Z59.0 Homelessness
CPT/HCPCS: 80053; 80307; 82550; 82552; 82805; 84484; 85007; 85027; 93005; 96360; 99284; J7030

== ENCOUNTER 2018-01-25 18:13 | Observation (INO) | payer SELFPAY ==
[2018-01-25 18:46] VITALS: BP 128/77; PULSE 96; RESP 18; TEMP 98.9; O2SAT 98
[2018-01-25 20:23] VITALS: BP 127/75; PULSE 98; RESP 18; TEMP 98.2; O2SAT 100
[2018-01-25 21:09] VITALS: O2SAT 96
--- NOTE | 2018-01-25 21:13 | PD ---
HPI Chief Complaint: Chest Pain Time Seen by Provider: 20:59 Travel History International Travel<30 days: No Contact w/Intl Traveler<30days: No Traveled to known affect area: No History of Present Illness HPI 62-year-old black male presents emergency department with complaints of chest pain. He states that this started over the last several hours. It is located to his upper abdomen lower chest. He states that sharp in nature. Nonradiating. He does admit to having some shortness of breath. No diaphoresis. Positive nausea with some vomiting. He admits to drinking alcohol. Review the medical record indicates multiple ER visits for chest pain here in the last week or so. His cardiac markers have been negative but have been positive for pancreatitis. He continues to drink alcohol. PFSH Past Medical History Anemia: Yes Arthritis: Yes Autoimmune Disease: No Blood Disorders: No Depression: Yes Heart Rhythm Problems: Yes Cancer: No Cardiac Catheterization: No Cardiovascular Problems: Yes High Cholesterol: No Chemotherapy: No Chest Pain: Yes Congestive Heart Failure: No Diabetes: No Diminished Hearing: No Endocrine: No Gastrointestinal Disorders: Yes (hernia) GERD: Yes Genitourinary: No Hiatal Hernia: Yes Heparin Induced Thrombocytopen: No Hypertension: Yes Immune Disorder: No Implanted Vascular Access Dvce: No Musculoskeletal: Yes Neurologic: No Psychiatric: No Reproductive: No Respiratory: Yes Immunizations Current: Yes Radiation Therapy: No Ulcer: Yes (BLEEDING ULCERS FROM ETOH ABUSE) Past Surgical History Abdominal Surgery: No AICD: No Arteriovenous Shunt: No Cardiac Surgery: No Coronary Artery Bypass Graft: No Ear Surgery: No Endocrine Surgery: No Eye Surgery: No Genitourinary Surgery: No Gynecologic Surgery: No Insulin Pump: No Joint Replacement: No Neurologic Surgery: No Oral Surgery: No Pacemaker: No Thoracic Surgery: No Other Surgery: Yes Family History Family Myocardial Infarction: Yes Social History Alcohol Use: Yes (DAILY 6 pack) Tobacco Use: No (QUIT 2011) Substance Use: No Allergies-Medications (Allergen,Severity, Reaction): Coded Allergies: No Known Allergies (Verified Allergy, Unknown, 01/25/18) Reported Meds & Prescriptions Reported Meds & Active Scripts Active Reported Protonix (Pantoprazole Sodium) 40 Mg Tab 40 Mg PO DAILY Sucralfate 1 Gram Tab 1 Gm PO QID on empty stomach Triamterene-Hydrochlorothiazide 37.5-25 Mg Tab 1 Tab PO DAILY Review of Systems General / Constitutional: No: Fever Eyes: No: Visual changes HENT: No: Headaches Cardiovascular: Positive: Chest Pain or Discomfort Respiratory: Positive: Shortness of Breath Gastrointestinal: Positive: Nausea, Vomiting, Abdominal Pain Genitourinary: No: Dysuria Musculoskeletal: No: Pain Skin: No Rash Neurologic: No: Weakness Psychiatric: No: Depression Endocrine: No: Polydipsia Hematologic/Lymphatic: No: Easy Bruising Physical Exam Narrative GENERAL: Well-developed, well-nourished in no apparent distress. Nontoxic appearing. Patient appears intoxicated. HEAD: Normocephalic, atraumatic. EYES: Pupils equal round and reactive. Extraocular motions intact. No scleral icterus. No injection or drainage. ENT: Nose clear. Throat without erythema, tonsillar hypertrophy or exudate. Uvula midline. Airway patent. NECK: Trachea midline. Supple, nontender, moves head freely. No central bony tenderness or spasm. CARDIOVASCULAR: Regular rate and rhythm without murmurs, gallops, or rubs. RESPIRATORY: Clear to auscultation. Breath sounds equal bilaterally. No wheezes , rales, or rhonchi. GASTROINTESTINAL: Abdomen soft, tenderness in the epigastric region, nondistended. No hepato-splenomegaly, or palpable masses. No guarding. EXTREMITIES: No clubbing, cyanosis, or edema. No joint tenderness. BACK: Nontender without deformity. No flank tenderness. NEUROLOGICAL: Awake, alert and oriented x 3 .Cranial nerves grossly intact. Motor and sensory grossly within normal limits. Normal speech. Data Data Last Documented VS Vital Signs Date Time Temp Pulse Resp B/P (MAP) Pulse Ox O2 Delivery O2 Flow Rate FiO2 01/25/18 20:23 98.2 98 18 127/75 (92) 100 Room Air Orders Orders Electrocardiogram (01/25/18 ) Electrocardiogram (01/25/18 21:04) Basic Metabolic Panel (Bmp) (01/25/18 21:04) Ckmb (Isoenzyme) Profile (01/25/18 21:04) Complete Blood Count With Diff (01/25/18 21:04) Magnesium (Mg) (01/25/18 21:04) Prothrombin Time / Inr (Pt) (01/25/18 21:04) Act Partial Throm Time (Ptt) (01/25/18 21:04) Troponin I (01/25/18 21:04) Lipase (01/25/18 21:04) Ecg Monitoring (01/25/18 21:04) Iv Access Insert/Monitor (01/25/18 21:04) Oximetry (01/25/18 21:04) Sodium Chloride 0.9% Flush (Ns Flush) (01/25/18 21:15) Pantoprazole Inj (Protonix Inj) (01/25/18 21:15) MDM Medical Decision Making Medical Screen Exam Complete: Yes Emergency Medical Condition: Yes Medical Record Reviewed: Yes Differential Diagnosis MDM: High Differential diagnoses: Coronary artery disease, STEMI, angina, pancreatitis Narrative Course IV access is obtained. Patient was given Protonix 40 mg IV. Patient's care has been transferred to Dr. Ruffin Condition: Stable Bud Malik Jan 25, 2018 21:13
[2018-01-25] MEDS ORDERED: PANTOPRAZOLE SODIUM 40 MG VIAL IV PUSH ONE (21:15)
[2018-01-25] MEDS ORDERED: SODIUM CHLORIDE 0.9% FLUSH 10 ML FLUSH IVF PRN (21:15)
[2018-01-25] MEDS ORDERED: ONDANSETRON HCL 4 MG/2 ML VIAL IV PUSH ONE (21:30)
[2018-01-25] MEDS ORDERED: PROCHLORPERAZINE INJ 10 MG/2 ML VIAL IV PUSH ONE (21:30)
[2018-01-25] MEDS ORDERED: diphenhydrAMINE HCL 50 MG/ML VIAL IV PUSH ONE (21:30)
[2018-01-25] MEDS ORDERED: SODIUM CHLOR 0.9% 1000 ML INJ 1,000 ML IV ONE (21:30)
[2018-01-25 21:45] LABS: HEMATOCRIT 29.9 % (39.0-51.0); HEMOGLOBIN 9.3 GM/DL (13.0-17.0); MEAN CELL VOLUME 76.3 FL (80.0-100.0); MEAN CORPUSCULAR HEMOGLOBIN 23.7 PG (27.0-34.0); MEAN CORPUSCULAR HGB CONC 31.1 % (32.0-36.0); MEAN PLATELET VOLUME 6.4 FL (7.0-11.0); PLATELET COUNT 328 TH/MM3 (150-450); RED BLOOD COUNT 3.92 MIL/MM3 (4.50-5.90); RED CELL DISTRIBUTION WIDTH 26.8 % (11.6-17.2); WHITE BLOOD COUNT 3.7 TH/MM3 (4.0-11.0)
[2018-01-25 22:10] LABS: BICARBONATE 24.9 MEQ/L (21.0-32.0); BLOOD UREA NITROGEN 14 MG/DL (7-18); CALCIUM 8.4 MG/DL (8.5-10.1); CHLORIDE 102 MEQ/L (98-107); CREATININE 0.92 MG/DL (0.60-1.30); GLOMERULAR FILTRATION RATE 102 ML/MIN (>89); GLUCOSE,RANDOM 93 MG/DL (74-106); MAGNESIUM 1.9 MG/DL (1.5-2.5); SODIUM (NA) 139 MEQ/L (136-145)
[2018-01-25 22:14] LABS: TROPONIN I LESS THAN 0.02 NG/ML (0.02-0.05)
[2018-01-25 22:47] LABS: BASOPHILS 1 % (0-2); LYMPHOCYTES 51 % (9-44); MONOCYTES 7 % (0-8); NEUTROPHIL # MANUAL DIFF 1.5 TH/MM3 (1.8-7.7); POLYS (SEG NEUTROPHILS) 40 % (16-70)
[2018-01-25 22:48] LABS: OVALOCYTES 1+ (NORMAL)
--- NOTE | 2018-01-26 00:24 | PD ---
Data Data Last Documented VS Vital Signs Date Time Temp Pulse Resp B/P (MAP) Pulse Ox O2 Delivery O2 Flow Rate FiO2 01/25/18 21:09 96 Room Air 01/25/18 20:23 98.2 98 18 Orders Orders Electrocardiogram (01/25/18 ) Electrocardiogram (01/25/18 21:04) Basic Metabolic Panel (Bmp) (01/25/18 21:04) Ckmb (Isoenzyme) Profile (01/25/18 21:04) Complete Blood Count With Diff (01/25/18 21:04) Magnesium (Mg) (01/25/18 21:04) Prothrombin Time / Inr (Pt) (01/25/18 21:04) Act Partial Throm Time (Ptt) (01/25/18 21:04) Troponin I (01/25/18 21:04) Lipase (01/25/18 21:04) Ecg Monitoring (01/25/18 21:04) Iv Access Insert/Monitor (01/25/18 21:04) Oximetry (01/25/18 21:04) Sodium Chloride 0.9% Flush (Ns Flush) (01/25/18 21:15) Pantoprazole Inj (Protonix Inj) (01/25/18 21:15) Ondansetron Inj (Zofran Inj) (01/25/18 21:30) Sodium Chlor 0.9% 1000 Ml Inj (Ns 1000 M (01/25/18 21:30) Prochlorperazine Inj (Compazine Inj) (01/25/18 21:30) Diphenhydramine Inj (Benadryl Inj) (01/25/18 21:30) CKMB (01/25/18 21:15) CKMB% (01/25/18 21:15) Admit Order (Ed Use Only) (01/26/18 ) Fire Engine Operator / Telemetry BRIANNA.Q8H (01/26/18 00:00) Vital Signs (Adult) Q4H (01/26/18 00:00) Diet Heart Healthy (01/26/18 Breakfast) Activity Bed Rest (01/26/18 00:00) Labs Laboratory Tests Test 01/25/18 21:15 White Blood Count 3.7 TH/MM3 Red Blood Count 3.92 MIL/MM3 Hemoglobin 9.3 GM/DL Hematocrit 29.9 % Mean Corpuscular Volume 76.3 FL Mean Corpuscular Hemoglobin 23.7 PG Mean Corpuscular Hemoglobin Concent 31.1 % Red Cell Distribution Width 26.8 % Platelet Count 328 TH/MM3 Mean Platelet Volume 6.4 FL CBC Comment AUTO DIFF Differential Total Cells Counted 100 Neutrophils % (Manual) 40 % Lymphocytes % 51 % Monocytes % 7 % Eosinophils % 1 % Basophils % 1 % Neutrophils # (Manual) 1.5 TH/MM3 Differential Comment FINAL DIFF MANUAL Platelet Estimate NORMAL Platelet Morphology Comment NORMAL Ovalocytes 1+ Prothrombin Time 10.0 SEC Prothromb Time International Ratio 1.0 RATIO Activated Partial Thromboplast Time 24.4 SEC Blood Urea Nitrogen 14 MG/DL Creatinine 0.92 MG/DL Random Glucose 93 MG/DL Calcium Level 8.4 MG/DL Magnesium Level 1.9 MG/DL Sodium Level 139 MEQ/L Potassium Level 3.8 MEQ/L Chloride Level 102 MEQ/L Carbon Dioxide Level 24.9 MEQ/L Anion Gap 12 MEQ/L Estimat Glomerular Filtration Rate 102 ML/MIN Total Creatine Kinase 298 U/L Creatine Kinase MB 5.8 NG/ML Troponin I LESS THAN 0.02 NG/ML Lipase 415 U/L [facility] Medical Record Reviewed: Yes Supervised Visit with NEREIDA: Yes Narrative Course I, Dr. Ruffin, have reviewed the advance practice practitioner's documentation and am in agreement, met with the patient face to face, made the diagnosis, and the medical decision making was done by me. *My assessment and Findings: Patient has alcoholic pancreatitis. Case discussed with Dr. Arauz for the hospitalist service CBC & BMP Diagram 01/25/18 21:15 Calcium Level 8.4 L, Magnesium Level 1.9 Lipase 415 Diagnosis Primary Impression: Pancreatitis Additional Impression: Alcohol abuse Condition: Bryn Mclean MD Jan 26, 2018 00:24
[2018-01-26] MEDS ORDERED: LACTULOSE SYRUP 20 GM/30 ML CUP PO PRN (02:15)
[2018-01-26] MEDS ORDERED: LORazepam 2 MG/ML VIAL IV PUSH PRN ×4 (02:15)
[2018-01-26] MEDS ORDERED: ACETAMINOPHEN 325 MG TAB PO PRN (02:15)
[2018-01-26] MEDS ORDERED: LORazepam 2 MG TAB PO PRN (02:15)
[2018-01-26] MEDS ORDERED: ONDANSETRON HCL 4 MG/2 ML VIAL IVP PRN (02:15)
[2018-01-26] MEDS ORDERED: SODIUM CHLORIDE 0.9% FLUSH 10 ML FLUSH IV FLUSH PRN (02:15)
[2018-01-26] MEDS ORDERED: FLUMAZENIL 0.5 MG/5 ML VIAL IV PUSH PRN (02:15)
[2018-01-26] MEDS ORDERED: NALOXONE HCL 0.4 MG/ML AMP IV PUSH PRN (02:15)
[2018-01-26] MEDS ORDERED: BISACODYL 10 MG SUPP RECTAL PRN (02:15)
[2018-01-26] MEDS ORDERED: LORazepam 1 MG TAB PO PRN (02:15)
[2018-01-26] MEDS ORDERED: SENNOSIDES 8.6 MG TAB PO PRN (02:15)
[2018-01-26] MEDS ORDERED: MAGNESIUM HYDROXIDE SUSP 30 ML CUP PO PRN (02:15)
[2018-01-26] MEDS: SODIUM CHLOR 0.9% 1000 ML INJ 1,000 ML IV SCH ×3 (02:19→16:39)
[2018-01-26 02:28] VITALS: BP 123/70; PULSE 67; RESP 14; O2SAT 99
[2018-01-26 03:42] LABS: TROPONIN I LESS THAN 0.02 NG/ML (0.02-0.05)
[2018-01-26 05:00] VITALS: BP 144/70; PULSE 72; RESP 18; TEMP 98
[2018-01-26] MEDS: THIAMINE INJ 100 MG in SODIUM CHLORIDE 0.9% INJ 100 ML IV SCH (05:47)
[2018-01-26] MEDS: MULTIVITAMIN INJ 10 ML, FOLIC ACID INJ 1 MG in SODIUM CHLORID 0.9% 500 ML INJ 500 ML IV SCH (05:47)
[2018-01-26] MEDS: HEPARIN SODIUM - SQ 10,000 UNITS/ML VIAL SQ SCH ×2 (06:14→17:05)
[2018-01-26 08:06] VITALS: BP 167/85; PULSE 77; RESP 20; O2SAT 98
[2018-01-26] MEDS: SODIUM CHLORIDE 0.9% FLUSH 10 ML FLUSH IV FLUSH SCH ×2 (09:00→20:44)
[2018-01-26] MEDS: DOCUSATE SODIUM 50 MG/SENNA 8.6 MG TAB PO SCH ×2 (09:12→20:44)
[2018-01-26 11:56] LABS: TROPONIN I LESS THAN 0.02 NG/ML (0.02-0.05)
--- NOTE | 2018-01-26 13:04 | HHI.HP ---
HPI Service [facility]ists Primary Care Physician Unknown Admission Diagnosis Alcoholic Pancreatitis Diagnoses: Chief Complaint: chest pain Travel History International Travel<30 Days: No Contact w/Intl Traveler <30 Da: No Traveled to Known Affected Are: No History of Present Illness Written by Trinity Carmona, acting as scribe for Dr. Lim on 01/26/18 at 13:01. 62-year-old male with history of hypertension, heart murmur, presents with a 2 day history of chest pain. He locates the pain across the anterior chest without radiation, described as constant sharp and pressure pains, worse with cough and exertion, associated with nausea and 1 episode of vomiting. Denies any shortness of breath. He states he was outside in the heat therefore he was sweating profusely. He is currently in the process of walking from [facility] to [facility] to stay with his niece. He drinks 6-8 beers daily. Denies tobacco use. He believes he had a stress test 2 years ago that was normal. Denies any history of CAD, pancreatitis, or gallstones. Denies any other medical complaints at this time including no headache, lightheadedness, dizziness, palpitations, abdominal pain, diarrhea, or urinary complaints. Review of Systems Except as stated in HPI: all other systems reviewed are Neg Past Family Social History Past Medical History Hypertension Heart Murmur GERD Hiatal Hernia Gastric ulcers Arthritis Depression Past Surgical History Pin in hand Reported Medications HCTZ 25mg daily Allergies: Coded Allergies: No Known Allergies (Verified Allergy, Unknown, 01/25/18) Active Ordered Medications Current Medications Medications (Trade) Dose Ordered Sig/Gordy Route Start Time Stop Time Status Last Admin (NS Flush) 2 ml UNSCH PRN IVF 01/25/18 21:15 Sodium Chloride 1,000 ml @ 100 mls/hr Q10H IV 01/26/18 02:12 01/26/18 09:15 (NS Flush) 2 ml UNSCH PRN IV FLUSH 01/26/18 02:15 (NS Flush) 2 ml BID IV FLUSH 01/26/18 09:00 01/26/18 09:00 (Tylenol) 650 mg Q4H PRN PO 01/26/18 02:15 (Zofran Inj) 4 mg Q6H PRN IVP 01/26/18 02:15 (Heparin Inj) 5,000 units Q12H SQ 01/26/18 06:00 01/26/18 06:14 (Narcan Inj) 0.4 mg UNSCH PRN IV PUSH 01/26/18 02:15 (Kelly-Colace) 1 tab BID PO 01/26/18 09:00 01/26/18 09:12 (Milk Of Magnesia Liq) 30 ml Q12H PRN PO 01/26/18 02:15 (Senokot) 17.2 mg Q12H PRN PO 01/26/18 02:15 (Dulcolax Supp) 10 mg DAILY PRN RECTAL 01/26/18 02:15 (Lactulose Liq) 30 ml DAILY PRN PO 01/26/18 02:15 Multivitamins 10 ml/Folic Acid 1 mg/Sodium Chloride 510.2 ml @ 125 mls/hr Q24H IV 01/26/18 05:00 01/31/18 04:59 01/26/18 05:47 Thiamine HCl 100 mg/Sodium Chloride 101 ml @ 100 mls/hr Q24H IV 01/26/18 05:00 01/29/18 04:59 01/26/18 05:47 (Vitamin B1) 100 mg DAILY PO 01/29/18 09:00 (Romazicon Inj) 0.2 mg Q1M PRN IV PUSH 01/26/18 02:15 (Ativan) 1 mg Q4H PRN PO 01/26/18 02:15 (Ativan Inj) 1 mg Q4H PRN IV PUSH 01/26/18 02:15 (Ativan) 2 mg Q2H PRN PO 01/26/18 02:15 (Ativan Inj) 2 mg Q2H PRN IV PUSH 01/26/18 02:15 (Ativan Inj) 2 mg Q1H PRN IV PUSH 01/26/18 02:15 (Ativan Inj) 2 mg Q15M PRN IV PUSH 01/26/18 02:15 (Protonix) 40 mg DAILY PO 01/27/18 09:00 (Carafate) 1 gm QID PO 01/26/18 18:00 (Maxzide 37.5-25 Mg) 1 tab DAILY PO 01/27/18 09:00 Family History Brother with CHF Another brother with cardiac stents Sister with 3 open heart surgeries Social History Denies tobacco use Drinks alcohol, 6-8beers daily Denies any illicit drug use Physical Exam Vital Signs Vital Signs Date Time Temp Pulse Resp B/P (MAP) Pulse Ox O2 Delivery O2 Flow Rate FiO2 01/26/18 08:06 77 20 167/85 (112) 98 01/26/18 05:00 98.0 72 18 144/70 (94) 01/26/18 02:28 67 14 123/70 (87) 99 Room Air 01/25/18 21:09 96 Room Air 01/25/18 20:23 98.2 98 18 127/75 (92) 100 Room Air 01/25/18 18:51 18 01/25/18 18:46 98.9 96 18 128/77 (94) 98 Physical Exam GENERAL: Well-nourished, well-developed middle aged male patient in [facility]. SKIN: Warm and dry. No rash. HEAD: Normocephalic. Atraumatic. EYES: Pupils equal and round. No scleral icterus. No injection or drainage. ENT: No nasal bleeding or discharge. Mucous membranes pink and moist. NECK: Supple. Trachea midline. CARDIOVASCULAR: Regular rate and rhythm. S1, S2 noted. No murmur appreciated. Chest nontender to palpation. RESPIRATORY: No accessory muscle use. Clear to auscultation. Breath sounds equal bilaterally. GASTROINTESTINAL: Abdomen soft, nondistended, mild epigastric TTP. Normoactive bowel sounds x4. MUSCULOSKELETAL: No obvious deformities. Extremities without clubbing, cyanosis , or edema. NEUROLOGICAL: Awake and alert. No obvious cranial nerve deficits. Motor grossly within normal limits. Normal speech. PSYCHIATRIC: Appropriate mood and affect; insight and judgment normal. Laboratory Laboratory Tests Test 01/25/18 21:15 01/26/18 02:58 01/26/18 10:27 White Blood Count 3.7 Red Blood Count 3.92 Hemoglobin 9.3 Hematocrit 29.9 Mean Corpuscular Volume 76.3 Mean Corpuscular Hemoglobin 23.7 Mean Corpuscular Hemoglobin Concent 31.1 Red Cell Distribution Width 26.8 Platelet Count 328 Mean Platelet Volume 6.4 CBC Comment AUTO DIFF Differential Total Cells Counted 100 Neutrophils % (Manual) 40 Lymphocytes % 51 Monocytes % 7 Eosinophils % 1 Basophils % 1 Neutrophils # (Manual) 1.5 Differential Comment FINAL DIFF MANUAL Platelet Estimate NORMAL Platelet Morphology Comment NORMAL Ovalocytes 1+ Prothrombin Time 10.0 Prothromb Time International Ratio 1.0 Activated Partial Thromboplast Time 24.4 Blood Urea Nitrogen 14 Creatinine 0.92 Random Glucose 93 Calcium Level 8.4 Magnesium Level 1.9 Sodium Level 139 Potassium Level 3.8 Chloride Level 102 Carbon Dioxide Level 24.9 Anion Gap 12 Estimat Glomerular Filtration Rate 102 Total Creatine Kinase 298 221 246 Creatine Kinase MB 5.8 Troponin I LESS THAN 0.02 LESS THAN 0.02 LESS THAN 0.02 Lipase 415 Result Diagram: 01/25/18211401/25/182114 Caprinbright VTE Risk Assessment Ramanrinbright VTE Risk Assessment: No/Low Risk (score <= 1) Caprini Risk Assessment Model Point Value = 1 Point Value = 2 Point Value = 3 Point Value = 5 Age 41-60 Minor surgery BMI > 25 kg/m2 Swollen legs Varicose veins or History of unexplained or recurrent spontaneous Oral contraceptives or hormone replacement Sepsis (< 1 month) Serious lung disease, including pneumonia (< 1 month) Abnormal pulmonary function Acute myocardial infarction Congestive heart failure (< 1 month) History of inflammatory bowel disease Medical patient at bed rest Age 61-74 Arthroscopic surgery Major open surgery (> 45 min) Laparoscopic surgery (> 45 min) Malignancy Confined to bed (> 72 hours) Immobilizing plaster cast Central venous access Age >= 75 History of VTE Family history of VTE Factor V Leiden Prothrombin [id number] Lupus anticoagulant Anticardiolipin antibodies Elevated serum homocysteine Heparin-induced thrombocytopenia Other congenital or acquired thrombophilia Stroke (< 1 month) Elective arthroplasty Hip, pelvis, or leg fracture Acute spinal cord injury (< 1 month) Prophylaxis Regimen Total Risk Factor Score Risk Level Prophylaxis Regimen 0-1 Low Early ambulation 2 Moderate Order ONE of the following: *Sequential Compression Device (SCD) *Heparin 5000 units SQ BID 3-4 Higher Order ONE of the following medications: *Heparin 5000 units SQ TID *Enoxaparin/Lovenox 40 mg SQ daily (WT < 150 kg, CrCl > 30 mL/min) *Enoxaparin/Lovenox 30 mg SQ daily (WT < 150 kg, CrCl > 10-29 mL/min) *Enoxaparin/Lovenox 30 mg SQ BID (WT < 150 kg, CrCl > 30 mL/min) AND/OR *Sequential Compression Device (SCD) 5 or more Highest Order ONE of the following medications: *Heparin 5000 units SQ TID (Preferred with Epidurals) *Enoxaparin/Lovenox 40 mg SQ daily (WT < 150 kg, CrCl > 30 mL/min) *Enoxaparin/Lovenox 30 mg SQ daily (WT < 150 kg, CrCl > 10-29 mL/min) *Enoxaparin/Lovenox 30 mg SQ BID (WT < 150 kg, CrCl > 30 mL/min) AND *Sequential Compression Device (SCD) Assessment and Plan Problem List: (1) Atypical chest pain ICD Code: R07.89 - Other chest pain Status: Acute (2) Pancreatitis ICD Code: K85.9 - Pancreatitis Status: Acute (3) Alcohol abuse ICD Code: F10.10 - Alcohol abuse Status: Acute Assessment and Plan 62-year-old male with history of hypertension, heart murmur, presents with a 2 day history of chest pain. Acute Alcoholic Pancreatitis: Lipase 415. Patient admits to drinking 6-8beers daily. No hx of gallstones. -Check LFTs -Give IVF -Hx of gastric ulcers, will give Protonix and Carafate -Initially kept NPO, symptoms improved, advanced to liquid diet -repeat lipase in am Atypical Chest Pain: suspect secondary to pancreatitis as above. EMR reviewed, treadmill stress test 11/03/17 unremarkable. -ACS ruled out with negative serial cardiac enzymes x3 and EKG without acute ischemic changes -Monitor on telemetry -Hx of cocaine use, will check UDS -Symptoms currently improved Hypertension: BP not optimally controlled. -Restart patient's home med including triamterene-HCTZ -Monitor BP, adjust antihypertensives as needed Microcytic Anemia: Hgb 9.3, consistent with baseline -check iron studies and ferritin in am -outpatient f/up with PCP Alcohol Abuse: patient drinks 6-8beers daily. Impending withdrawal. -Start thiamine, folate, MV -CIWA protocol, Ativan prn -Monitor for withdrawal DVT Prophylaxis: Heparin sq Discussed Condition With Patient, RN This note was transcribed by arturo Carmona. I, Dr. Davey Lim personally performed the history, physical exam, and medical decision making; and confirmed the accuracy of the information in the transcribed note. Authenticated by Dr. Davey Lim on 01/26/18 at 13:10. Trinity Carmona PA-C Jan 26, 2018 13:04 Davey Lim MD Jan 26, 2018 13:10
[2018-01-26 13:49] VITALS: BP 164/84; PULSE 74; RESP 16; O2SAT 98
[2018-01-26 17:00] VITALS: BP 164/77; PULSE 86; RESP 20; TEMP 98.7; O2SAT 99
[2018-01-26] MEDS: SUCRALFATE 1 GM TAB PO SCH ×2 (17:05→20:44)
--- NOTE | 2018-01-26 18:59 | EKG ---
Date Performed: 01/26/2018 Time Performed: 08:01:41 PTAGE: 62 years EKG: Sinus rhythm NONSPECIFIC T-WAVE ABNORMALITY ABNORMAL ECG Since the prior tracing, there has been no significant c rayne PREVIOUS TRACING : 01/26/2018 02.54 DOCTOR: Victorino Hinton Interpretating Date/Time 01/26/2018 18:57:15
--- NOTE | 2018-01-26 19:00 | EKG ---
Date Performed: 01/25/2018 Time Performed: 20:11:56 PTAGE: 62 years EKG: Sinus rhythm NORMAL ECG Since the prior tracing, there has been no significant change PREVIOUS TRACING : 01/01/2018 17.13 DOCTOR: Victorino Hinton Interpretating Date/Time 01/26/2018 18:57:53
--- NOTE | 2018-01-26 19:00 | EKG ---
Date Performed: 01/26/2018 Time Performed: 02:54:05 PTAGE: 62 years EKG: Sinus rhythm NORMAL ECG INTERPRETATION BASED ON A DEFAULT AGE OF 40 YEARS Since the prior tracing, there has been no significant change PREVIOUS TRACING : 01/25/2018 20.11 DOCTOR: Victorino Hinton Interpretating Date/Time 01/26/2018 18:57:25
--- NOTE | 2018-01-26 19:00 | EKG ---
Date Performed: 01/25/2018 Time Performed: 21:23:53 PTAGE: 62 years EKG: Sinus rhythm POSSIBLE LEFT ATRIAL ENLARGEMENT BORDERLINE ECG Since the prior tracing, there has been no significa nt change PREVIOUS TRACING : 01/21/2018 23.38 DOCTOR: Victorino Hinton Interpretating Date/Time 01/26/2018 18:57:39
[2018-01-26 20:23] VITALS: BP 154/77; PULSE 98; RESP 16; TEMP 98; O2SAT 98
[2018-01-27] VITALS (9 sets, daily range): BP systolic 132–163; BP diastolic 67–93; PULSE 75–92; RESP 16–20; TEMP 98–98.8; O2SAT 94–99
[2018-01-27] MEDS: SODIUM CHLOR 0.9% 1000 ML INJ 1,000 ML IV SCH ×3 (02:11→22:39)
[2018-01-27] MEDS: THIAMINE INJ 100 MG in SODIUM CHLORIDE 0.9% INJ 100 ML IV SCH (04:35)
[2018-01-27] MEDS: HEPARIN SODIUM - SQ 10,000 UNITS/ML VIAL SQ SCH (05:46)
[2018-01-27] MEDS: MULTIVITAMIN INJ 10 ML, FOLIC ACID INJ 1 MG in SODIUM CHLORID 0.9% 500 ML INJ 500 ML IV SCH (05:46)
[2018-01-27 07:22] LABS: HEMATOCRIT 27.1 % (39.0-51.0); HEMOGLOBIN 8.5 GM/DL (13.0-17.0); MEAN CELL VOLUME 76.5 FL (80.0-100.0); MEAN CORPUSCULAR HEMOGLOBIN 23.9 PG (27.0-34.0); MEAN CORPUSCULAR HGB CONC 31.3 % (32.0-36.0); MEAN PLATELET VOLUME 6.7 FL (7.0-11.0); PLATELET COUNT 247 TH/MM3 (150-450); RED BLOOD COUNT 3.54 MIL/MM3 (4.50-5.90); RED CELL DISTRIBUTION WIDTH 26.1 % (11.6-17.2); WHITE BLOOD COUNT 3.1 TH/MM3 (4.0-11.0)
[2018-01-27 08:01] LABS: ALT (GPT) 14 U/L (12-78); AST (GOT) 19 U/L (15-37); BICARBONATE 26.7 MEQ/L (21.0-32.0); BLOOD UREA NITROGEN 6 MG/DL (7-18); CALCIUM 7.6 MG/DL (8.5-10.1); CHLORIDE 107 MEQ/L (98-107); CREATININE 0.78 MG/DL (0.60-1.30); GLOMERULAR FILTRATION RATE 123 ML/MIN (>89); GLUCOSE,RANDOM 78 MG/DL (74-106); IRON (FE) 40 MCG/DL (65-175); SODIUM (NA) 142 MEQ/L (136-145)
[2018-01-27 08:06] LABS: % SATURATION IRON PROFILE 10.2 % (20-50); ALKALINE PHOSPHATASE 82 U/L (45-117); FERRITIN 70 NG/ML (26-388); TOTAL BILIRUBIN ADULT 0.6 MG/DL (0.2-1.0); TOTAL IRON BINDING CAPACITY 393 MCG/DL (250-450); TOTAL PROTEIN 6.1 GM/DL (6.4-8.2)
[2018-01-27 08:30] LABS: BANDS 1 % (0-6); BASOPHILS 1 % (0-2); LYMPHOCYTES 23 % (9-44); MONOCYTES 13 % (0-8); NEUTROPHIL # MANUAL DIFF 1.9 TH/MM3 (1.8-7.7); OVALOCYTES 1+ (NORMAL); POLYS (SEG NEUTROPHILS) 61 % (16-70)
[2018-01-27] MEDS ORDERED: POTASSIUM CHLORIDE 20 MEQ CONTROLLED RELEASE TAB PO ONE (08:45)
[2018-01-27] MEDS ORDERED: FERR325T18 PO (08:48)
[2018-01-27] MEDS ORDERED: THIA100 PO (08:48)
--- NOTE | 2018-01-27 08:48 | HHI.DCPOC ---
Discharge Care Plan Diagnosis: (1) Pancreatitis (2) Iron deficiency anemia (3) Atypical chest pain (4) Alcohol abuse (5) GERD (gastroesophageal reflux disease) Goals to Promote Your Health * To prevent worsening of your condition and complications * To maintain your health at the optimal level Directions to Meet Your Goals Take your medications as prescribed Follow your dietary instruction Follow activity as directed Keep your appointments as scheduled Take your immunizations and boosters as scheduled If your symptoms worsen call your PCP, if no PCP go to Urgent Care Center or Emergency Room Smoking is Dangerous to Your Health. Avoid second hand smoke Call the 24-hour hour crisis hotline for domestic abuse at Trinity Carmona PA-C Jan 27, 2018 08:48
[2018-01-27] MEDS: TRIAMTERENE/HCTZ 37.5 MG/25 MG TAB PO SCH (09:36)
[2018-01-27] MEDS: DOCUSATE SODIUM 50 MG/SENNA 8.6 MG TAB PO SCH (09:36)
[2018-01-27] MEDS: SUCRALFATE 1 GM TAB PO SCH ×4 (09:36→21:14)
[2018-01-27] MEDS: PANTOPRAZOLE SOD 40 MG DELAYED RELEASE TAB PO SCH (09:36)
[2018-01-27] MEDS: SODIUM CHLORIDE 0.9% FLUSH 10 ML FLUSH IV FLUSH SCH ×2 (09:37→21:00)
[2018-01-27] MEDS ORDERED: SUCR1TAB PO (11:53)
[2018-01-27] MEDS ORDERED: PROT40TA PO (11:53)
[2018-01-27] MEDS: LACTOBACILLUS ACIDOPHILUS TAB PO SCH ×2 (12:46→17:20)
[2018-01-27] MEDS: FERROUS SULFATE 325 MG (65 MG ELEMENTAL IRON) TAB PO SCH ×2 (12:46→17:20)
--- NOTE | 2018-01-27 14:26 | HHI.PR ---
Subjective Remarks Follow-up acute pancreatitis. Improving abdominal pain tolerating diet however complaining of frequent loose stools since yesterday. Stools described as dark green. States he took antibiotic 2 weeks ago. Discussed with nursing Objective Vitals Vital Signs Date Time Temp Pulse Resp B/P (MAP) Pulse Ox O2 Delivery O2 Flow Rate FiO2 01/27/18 12:00 98.5 83 20 132/68 (89) 94 01/27/18 11:48 98.3 76 18 163/80 (107) 98 01/27/18 08:30 98.0 75 18 155/88 (110) 98 01/27/18 04:00 91 01/27/18 01:46 98.0 83 16 143/91 (108) 99 01/26/18 20:23 98.0 98 16 154/77 (102) 98 01/26/18 17:00 98.7 86 20 164/77 (106) 99 I/O 01/26/18 01/26/18 01/26/18 01/27/18 01/27/18 01/27/18 07:00 15:00 23:00 07:00 15:00 23:00 Intake Total 1000 ml 611.2 ml 1500 ml Balance 1000 ml 611.2 ml 1500 ml Intake Oral 1500 ml IV Total 1000 ml 611.2 ml # Voids 3 4 Result Diagram: 01/27/1861301/27/18 06 Objective Remarks GENERAL: Well-nourished, well-developed middle aged male patient in [facility]. SKIN: Warm and dry. No rash. CARDIOVASCULAR: Regular rate and rhythm. S1, S2 noted. No murmur appreciated. Chest nontender to palpation. RESPIRATORY: No accessory muscle use. Clear to auscultation. Breath sounds equal bilaterally. GASTROINTESTINAL: Abdomen soft, nondistended, mild epigastric TTP. Normoactive bowel sounds x4. MUSCULOSKELETAL: No obvious deformities. Extremities without clubbing, cyanosis , or edema. NEUROLOGICAL: Awake and alert. No obvious cranial nerve deficits. Motor grossly within normal limits. Normal speech. PSYCHIATRIC: Appropriate mood and affect; insight and judgment normal. Procedures none A/P Problem List: (1) Atypical chest pain ICD Code: R07.89 - Other chest pain Status: Acute (2) Pancreatitis ICD Code: K85.9 - Pancreatitis Status: Acute (3) Alcohol abuse ICD Code: F10.10 - Alcohol abuse Status: Acute Assessment and Plan 62-year-old male with history of hypertension, heart murmur, presents with a 2 day history of chest pain. Acute Alcoholic Pancreatitis: Lipase 415. Patient admits to drinking 6-8beers daily. No hx of gallstones. Improving tolerating diet advance as tolerated Atypical Chest Pain: suspect secondary to pancreatitis as above. EMR reviewed, treadmill stress test 11/03/17 unremarkable. ACS ruled out with negative serial cardiac enzymes x3 and EKG without acute ischemic changes. Symptoms resolved. Monitor on telemetry we will check UDS history of cocaine use. Hypertension: BP not optimally controlled. Restart home medication triamterene. /Hydrochlorothiazide and monitor BP Microcytic Anemia: Hgb 9.3, he is iron deficient start iron and check Hemoccult. Negative EGD and c scope 2 years ago Alcohol Abuse: patient drinks 6-8beers daily Stable continue CIWA protocol Diarrhea. Discontinue Kelly-Colace and obtain C. difficile monitor for dehydration and electrolytes DVT Prophylaxis: Heparin sq will be held because of anemia pending Hemoccult Discharge Planning Not a safe discharge at this time secondary to ongoing diarrhea Davey Lim MD Jan 27, 2018 14:26
[2018-01-28 03:28] VITALS: BP 127/63; PULSE 68; RESP 16; TEMP 97.6; O2SAT 97
[2018-01-28 04:33] VITALS: PULSE 88
[2018-01-28] MEDS: THIAMINE INJ 100 MG in SODIUM CHLORIDE 0.9% INJ 100 ML IV SCH (05:02)
[2018-01-28] MEDS: MULTIVITAMIN INJ 10 ML, FOLIC ACID INJ 1 MG in SODIUM CHLORID 0.9% 500 ML INJ 500 ML IV SCH (06:03)
[2018-01-28 07:00] VITALS: PULSE 99
[2018-01-28 08:12] VITALS: BP 134/79; PULSE 75; RESP 18; TEMP 98.1; O2SAT 100
--- NOTE | 2018-01-28 08:32 | HHI.PR ---
Objective Vitals Vital Signs Date Time Temp Pulse Resp B/P (MAP) Pulse Ox O2 Delivery O2 Flow Rate FiO2 01/28/18 04:33 88 01/28/18 03:28 97.6 68 16 127/63 (84) 97 01/27/18 23:43 98.4 92 16 149/67 (94) 96 01/27/18 23:42 16 01/27/18 19:51 98.8 90 16 154/93 (113) 97 01/27/18 16:15 98.6 88 18 154/84 (107) 97 01/27/18 12:00 98.5 83 20 132/68 (89) 94 01/27/18 11:48 98.3 76 18 163/80 (107) 98 01/27/18 08:30 98.0 75 18 155/88 (110) 98 I/O 01/27/18 01/27/18 01/27/18 01/28/18 01/28/18 01/28/18 06:59 14:59 22:59 06:59 14:59 22:59 Intake Total 1500 ml 500 ml Output Total 950 ml Balance 1500 ml 500 ml -950 ml Intake Oral 1500 ml 500 ml Output Urine Total 950 ml # Voids 4 6 # Bowel Movements 5 1 Result Diagram: 01/27/1861301/27/18613 Objective Remarks GENERAL: Well-nourished, well-developed middle aged male patient in [facility]. SKIN: Warm and dry. No rash. CARDIOVASCULAR: Regular rate and rhythm. S1, S2 noted. No murmur appreciated. Chest nontender to palpation. RESPIRATORY: No accessory muscle use. Clear to auscultation. Breath sounds equal bilaterally. GASTROINTESTINAL: Abdomen soft, nondistended, mild epigastric TTP. Normoactive bowel sounds x4. MUSCULOSKELETAL: No obvious deformities. Extremities without clubbing, cyanosis , or edema. NEUROLOGICAL: Awake and alert. No obvious cranial nerve deficits. Motor grossly within normal limits. Normal speech. PSYCHIATRIC: Appropriate mood and affect; insight and judgment normal. Procedures none A/P Problem List: (1) Atypical chest pain ICD Code: R07.89 - Other chest pain Status: Acute (2) Pancreatitis ICD Code: K85.9 - Pancreatitis Status: Acute (3) Alcohol abuse ICD Code: F10.10 - Alcohol abuse Status: Acute Assessment and Plan 62-year-old male with history of hypertension, heart murmur, presents with a 2 day history of chest pain. Acute Alcoholic Pancreatitis: Lipase 415. Patient admits to drinking 6-8beers daily. No hx of gallstones. Improving tolerating diet advance as tolerated Atypical Chest Pain: suspect secondary to pancreatitis as above. EMR reviewed, treadmill stress test 11/03/17 unremarkable. ACS ruled out with negative serial cardiac enzymes x3 and EKG without acute ischemic changes. Symptoms resolved. Monitor on telemetry we will check UDS history of cocaine use. Hypertension: BP not optimally controlled. Restart home medication triamterene. /Hydrochlorothiazide and monitor BP Microcytic Anemia: Hgb 9.3, he is iron deficient start iron and check Hemoccult pending. Negative EGD and c scope 2 years ago Alcohol Abuse: patient drinks 6-8beers daily Stable continue CIWA protocol Diarrhea. Discontinued Kelly-Colace and f/u C. difficile monitor for dehydration and electrolytes DVT Prophylaxis: Heparin sq will be held because of anemia pending Hemoccult Discharge Planning Not a safe discharge at this time secondary to ongoing diarrhea Davey Lim MD Jan 28, 2018 08:32
[2018-01-28] MEDS: SODIUM CHLORIDE 0.9% FLUSH 10 ML FLUSH IV FLUSH SCH (09:00)
[2018-01-28] MEDS: SUCRALFATE 1 GM TAB PO SCH (09:22)
[2018-01-28] MEDS: TRIAMTERENE/HCTZ 37.5 MG/25 MG TAB PO SCH (09:22)
[2018-01-28] MEDS: PANTOPRAZOLE SOD 40 MG DELAYED RELEASE TAB PO SCH (09:22)
[2018-01-28] MEDS: LACTOBACILLUS ACIDOPHILUS TAB PO SCH (09:22)
[2018-01-28] MEDS: SODIUM CHLOR 0.9% 1000 ML INJ 1,000 ML IV SCH (10:21)
[2018-01-28 11:30] VITALS: PULSE 81
--- NOTE | 2018-01-28 14:03 | HHI.DS ---
Discharge Summary Admission Date Jan 26, 2018 at 00:02 Discharge Date: Jan 28, 2018 Admitting Diagnosis Alcoholic Pancreatitis (1) Atypical chest pain ICD Code: R07.89 - Other chest pain Diagnosis: Principal Status: Acute (2) Pancreatitis ICD Code: K85.9 - Pancreatitis Diagnosis: Principal Status: Acute (3) Alcohol abuse ICD Code: F10.10 - Alcohol abuse Diagnosis: Principal Status: Acute Procedures none Brief History - From Admission Written by Trinity Carmona, acting as scribe for Dr. Lim on 01/26/18 at 13:01. 62-year-old male with history of hypertension, heart murmur, presents with a 2 day history of chest pain. He locates the pain across the anterior chest without radiation, described as constant sharp and pressure pains, worse with cough and exertion, associated with nausea and 1 episode of vomiting. Denies any shortness of breath. He states he was outside in the heat therefore he was sweating profusely. He is currently in the process of walking from [facility] to [place] to stay with his niece. He drinks 6-8 beers daily. Denies tobacco use. He believes he had a stress test 2 years ago that was normal. Denies any history of CAD, pancreatitis, or gallstones. Denies any other medical complaints at this time including no headache, lightheadedness, dizziness, palpitations, abdominal pain, diarrhea, or urinary complaints. CBC/BMP: 01/27/18 0614 01/27/18 0614 Significant Findings Laboratory Tests Test 01/25/18 21:15 01/26/18 02:58 01/26/18 10:27 01/27/18 06:14 White Blood Count 3.7 TH/MM3 (4.0-11.0) 3.1 TH/MM3 (4.0-11.0) Red Blood Count 3.92 MIL/MM3 (4.50-5.90) 3.54 MIL/MM3 (4.50-5.90) Hemoglobin 9.3 GM/DL (13.0-17.0) 8.5 GM/DL (13.0-17.0) Hematocrit 29.9 % (39.0-51.0) 27.1 % (39.0-51.0) Mean Corpuscular Volume 76.3 FL (80.0-100.0) 76.5 FL (80.0-100.0) Mean Corpuscular Hemoglobin 23.7 PG (27.0-34.0) 23.9 PG (27.0-34.0) Mean Corpuscular Hemoglobin Concent 31.1 % (32.0-36.0) 31.3 % (32.0-36.0) Red Cell Distribution Width 26.8 % (11.6-17.2) 26.1 % (11.6-17.2) Mean Platelet Volume 6.4 FL (7.0-11.0) 6.7 FL (7.0-11.0) Lymphocytes % 51 % (9-44) Neutrophils # (Manual) 1.5 TH/MM3 (1.8-7.7) Ovalocytes 1+ (NORMAL) 1+ (NORMAL) Calcium Level 8.4 MG/DL (8.5-10.1) 7.6 MG/DL (8.5-10.1) Creatine Kinase MB 5.8 NG/ML (0.5-3.6) Troponin I LESS THAN 0.02 NG/ML LESS THAN 0.02 NG/ML LESS THAN 0.02 NG/ML Lipase 415 U/L (73-393) Monocytes % 13 % (0-8) Blood Urea Nitrogen 6 MG/DL (7-18) Total Protein 6.1 GM/DL (6.4-8.2) Albumin 3.0 GM/DL (3.4-5.0) Potassium Level 3.3 MEQ/L (3.5-5.1) Iron Level 40 MCG/DL (65-175) Percent Iron Saturation 10.2 % (20-50) Test 01/28/18 06:25 PE at Discharge GENERAL: Well-nourished, well-developed middle aged male patient in [facility]. SKIN: Warm and dry. No rash. CARDIOVASCULAR: Regular rate and rhythm. S1, S2 noted. No murmur appreciated. Chest nontender to palpation. RESPIRATORY: No accessory muscle use. Clear to auscultation. Breath sounds equal bilaterally. GASTROINTESTINAL: Abdomen soft, nondistended, mild epigastric TTP. Normoactive bowel sounds x4. MUSCULOSKELETAL: No obvious deformities. Extremities without clubbing, cyanosis , or edema. NEUROLOGICAL: Awake and alert. No obvious cranial nerve deficits. Motor grossly within normal limits. Normal speech. PSYCHIATRIC: Appropriate mood and affect; insight and judgment normal. Hospital Course 62-year-old male with history of hypertension, heart murmur, presents with a 2 day history of chest pain. Acute Alcoholic Pancreatitis: Lipase 415. Patient admits to drinking 6-8beers daily. No hx of gallstones. Improved tolerating diet advance as tolerated Atypical Chest Pain: suspect secondary to pancreatitis as above. EMR reviewed, treadmill stress test 11/03/17 unremarkable. ACS ruled out with negative serial cardiac enzymes x3 and EKG without acute ischemic changes. Symptoms resolved. Monitor on telemetry we will check UDS history of cocaine use. Hypertension: BP not optimally controlled. Improved on home medication triamterene./Hydrochlorothiazide, monitor BP Microcytic Anemia: Hgb 9.3, he is iron deficient start iron and check Hemoccult negative 1. Negative EGD and c scope 2 years ago Alcohol Abuse: patient drinks 6-8beers daily Stable continue CIWA protocol Diarrhea. Improved. Discontinued Kelly-Colace. Negative C. difficile monitor for dehydration and electrolytes DVT Prophylaxis: Heparin sq Pt Condition on Discharge: Stable Discharge Disposition: Discharge Home Discharge Time: > 30 minutes Discharge Instructions DIET: Follow Instructions for: Heart Healthy Diet Additional Diet Instructions: NO ALCOHOL. Activities you can perform: Regular-No Restrictions Follow up Referrals: PCP Follow-up - 1 Week with [facility] New Medications: Ferrous Sulfate (Ferrous Sulfate) 325 Mg (65 Mg Iron) Tablet 325 MG PO BIDPC for Nutritional Supplement, #60 TAB 0 Refills Thiamine HCl (Gnp Vitamin B-1) 100 Mg Tab 100 MG PO DAILY for Alcohol Detox, #30 TAB Continued Medications: Pantoprazole (Protonix) 40 Mg Tab 40 MG PO DAILY for Reflux, #30 TAB 0 Refills (This prescription has been renewed ) Sucralfate (Sucralfate) 1 Gram Tab 1 GM PO QID for Duodenal ulcer, #120 TAB 0 Refills (This prescription has been renewed) on empty stomach Triamterene-Hydrochlorothiazide (Triamterene-Hydrochlorothiazide) 37.5-25 Mg Tab 1 TAB PO DAILY, #30 TAB 0 Refills Abando,Elie MD Jan 28, 2018 14:03
[2018-01-29] MEDS ORDERED: THIAMINE HCL 100 MG TAB PO SCH (09:00)
== END 2018-01-28 12:09 | disposition home or self-care (01) ==
LOC: NEPD 18:13 → NEDA 01-26 00:02 → NEDH 01-26 06:01 → NEPHCDU 01-26 15:54
PROVIDERS: ADMIT Internal Medicine; ATTEND Internal Medicine
DX: R07.89 Other chest pain (principal); K85.20 Alcohol induced acute pancreatitis without necrosis or infection; F10.10 Alcohol abuse, uncomplicated; D50.9 Iron deficiency anemia, unspecified; R94.31 Abnormal electrocardiogram [ECG] [EKG]; I10 Essential (primary) hypertension; K21.9 Gastro-esophageal reflux disease without esophagitis; F32.9 Major depressive disorder, single episode, unspecified; M19.90 Unspecified osteoarthritis, unspecified site; Z79.899 Other long term (current) drug therapy; Z87.11 Personal history of peptic ulcer disease
CPT/HCPCS: 80048; 80053; 82272; 82550; 82552; 82728; 83540; 83550; 83690; 83735; 84484; 85007; 85027; 85610; 85730; 87493; 93005; 96361; 96365; 96366; 96368; 96375; 99285; C9113; G0378; J1200; J1644; J2405; J3411; J7030; J7040

== ENCOUNTER 2018-03-02 19:05 | Observation (INO) | payer OTHER ==
[~2018-03-02] VITALS: Ht 167.6 cm; Wt 71.0 kg
[~2018-03-02 19:05] MED LIST changes: +FERR325T18 PO; +THIA100 PO
[2018-03-02 19:12] VITALS: BP 148/114; PULSE 95; RESP 22; TEMP 98.3; O2SAT 99
[2018-03-02 19:23] VITALS: RESP 20; O2SAT 99
[2018-03-02 19:24] VITALS: RESP 22; O2SAT 100
--- NOTE | 2018-03-02 19:38 | PD ---
HPI Chief Complaint: Chest Pain Time Seen by Provider: 19:15 Travel History International Travel<30 days: No Contact w/Intl Traveler<30days: No Traveled to known affect area: No History of Present Illness HPI The patient is a 62 year old male who presents to the [facility] emergency department with a history of bilateral chest and generalized abdominal pain that began a few hours ago. It began while he was walking from [place]. The patient reports that he is currently homeless. The pain is associated with shortness of breath. It is an aching pain. It is constant. He has had n/v x2 today. He denies having any diarrhea. He moved his bowels earlier today. He denies having any blood in his stool. He has had a cough and congestion for the last 2 days. He is occasionally bringing up a green sputum. He reports concern that he may have pneumonia. The patient is a daily alcohol drinker. He reports that he is currently drinking approximately 4 beers per day. He reports having chills, however he denies having any known recent fevers , neck pain, urinary symptoms, or neurologic symptoms. [facility]LY [facility] Past Medical History Narrative Medical The patient's past medical history is significant for hypertension, history of having a heart murmur, acid reflux, hiatal hernia, gastric ulcers, arthritis, depression, and history of an admission for alcohol related pancreatitis and chest pain on January 26. According to the record the patient had a stress test done last on November 03, 2017. This was reportedly unremarkable. Anemia: Yes Arthritis: Yes Autoimmune Disease: No Blood Disorders: No Depression: Yes Heart Rhythm Problems: Yes Cancer: No Cardiac Catheterization: No Cardiovascular Problems: Yes High Cholesterol: No Chemotherapy: No Chest Pain: Yes Congestive Heart Failure: No Diabetes: No Diminished Hearing: No Endocrine: No Gastrointestinal Disorders: Yes (hernia) GERD: Yes Genitourinary: No Hiatal Hernia: Yes Heparin Induced Thrombocytopen: No Hypertension: Yes Immune Disorder: No Implanted Vascular Access Dvce: No Musculoskeletal: Yes Neurologic: No Psychiatric: No Reproductive: No Respiratory: Yes Immunizations Current: Yes Radiation Therapy: No Ulcer: Yes (BLEEDING ULCERS FROM ETOH ABUSE) Past Surgical History Narrative Surgical The patient's past surgical history is significant for right hand surgery. Abdominal Surgery: No AICD: No Arteriovenous Shunt: No Cardiac Surgery: No Coronary Artery Bypass Graft: No Ear Surgery: No Endocrine Surgery: No Eye Surgery: No Genitourinary Surgery: No Gynecologic Surgery: No Insulin Pump: No Joint Replacement: No Neurologic Surgery: No Oral Surgery: No Pacemaker: No Thoracic Surgery: No Other Surgery: Yes (right hand) Family History Family Myocardial Infarction: Yes Social History Alcohol Use: Yes (4 beers/ day) Tobacco Use: No (QUIT 2011) Substance Use: No Allergies-Medications (Allergen,Severity, Reaction): Coded Allergies: No Known Allergies (Verified Allergy, Unknown, 01/25/18) Reported Meds & Prescriptions Reported Meds & Active Scripts Active Protonix (Pantoprazole Sodium) 40 Mg Tab 40 Mg PO DAILY Sucralfate 1 Gram Tab 1 Gm PO QID on empty stomach Ferrous Sulfate 325 Mg (65 Mg Iron) Tablet 325 Mg PO BIDPC Reported Triamterene-Hydrochlorothiazide 37.5-25 Mg Tab 1 Tab PO DAILY Review of Systems Except as stated in HPI: all other systems reviewed are Neg General / Constitutional: No: Fever Eyes: No: Visual changes HENT: Positive: Congestion, No: Headaches Cardiovascular: Positive: Chest Pain or Discomfort, Dyspnea on exertion Respiratory: Positive: Cough, No: Shortness of Breath Gastrointestinal: Positive: Nausea, Vomiting, Abdominal Pain, Indigestion, No: Diarrhea, Hematemesis, Hematochezia, Changes in Bowel Habits, Loss of Appetite Genitourinary: No: Dysuria Musculoskeletal: No: Pain Skin: No Rash Neurologic: No: Weakness, Focal Abnormalities, Change in Mentation, Slurred Speech, Sensory Disturbance Psychiatric: No: Depression Endocrine: No: Polydipsia Hematologic/Lymphatic: No: Easy Bruising Physical Exam Narrative General: The patient is a well-developed well-nourished male in no acute distress Head and Neck exam: Head is normocephalic atraumatic. Eyes: EOMI, pupils are equal round and reactive to light. Nose: Midline septum with pink mucous membranes Mouth: Dentition unremarkable. Moist mucus membranes. Posterior oropharynx is not erythematous. No tonsillar hypertrophy. Uvula midline. Airway patent. Neck: No palpable lymphadenopathy. No nuchal rigidity. No thyromegaly. Cardiovascular: Regular rate and rhythm without murmurs, gallops, or rubs. No murmur is appreciated on auscultation at this time. No pulse deficit to the extremities on simultaneous auscultation and palpation of his radial artery. Lungs: Clear to auscultation bilaterally. No wheezes, rhonchi, or rales. Abdomen: Soft, with reported tenderness on palpation in the midepigastric area, no other tenderness on palpation of the other quadrants of the abdomen. No guarding, rebound, or rigidity. Normal bowel sounds are audible. No tenderness on palpation of McBurney's point. Negative Acuña sign. Extremities: No clubbing, cyanosis, or edema. 2+ pulses in all 4 extremities. No calf tenderness on palpation peer Back: No costovertebral angle tenderness to palpation. Neurologic Exam: Grossly nonfocal. Skin Exam: No rash noted. Intact skin that is warm and dry. Data Data Last Documented VS Vital Signs Date Time Temp Pulse Resp B/P (MAP) Pulse Ox O2 Delivery O2 Flow Rate FiO2 03/02/18 19:24 22 100 Nasal Cannula 1.00 03/02/18 19:20 93 03/02/18 19:12 98.3 148/114 (125) Orders Orders Electrocardiogram (03/02/18:) Complete Blood Count With Diff (03/02/18 19:) Comprehensive Metabolic Panel (03/02/18:17) Creatine Kinase (Cpk) (03/02/18:) Ckmb (Isoenzyme) Profile (03/02/18:) Troponin I (03/02/18:) Prothrombin Time / Inr (Pt) (03/02/18:17) Act Partial Throm Time (Ptt) (03/02/18:) Lipase (03/02/18:) Urinalysis - C+S If Indicated (03/02/18 19:) Magnesium (Mg) (03/02/18 19:17) Chest, Single Ap (03/02/18:17) Iv Access Insert/Monitor (03/02/18:17) Ecg Monitoring (03/02/18:) Oximetry (03/02/18 19:17) Drug Screen, Random Urine (03/02/18 19:17) Alcohol (Ethanol) (03/02/18 19:17) Aspirin Chew (Aspirin Chew) (03/02/18 20:15) Pantoprazole Inj (Protonix Inj) (03/02/18 20:15) Ondansetron Inj (Zofran Inj) (03/02/18 20:15) Sodium Chlor 0.9% 1000 Ml Inj (Ns 1000 M (03/02/18 20:15) Thiamine Inj (Thiamine Inj) (03/02/18 20:15) Nitroglycerin 2% Oint (Nitroglycerin 2% (03/02/18 20:15) CKMB (03/02/18 20:00) CKMB% (03/02/18 20:00) Ct Abd/Pel W Iv Contrast(Rout) (03/02/18 21:51) Admit Order (Ed Use Only) (03/02/18 21:52) Labs Laboratory Tests Test 03/02/18 19:30 03/02/18 20:00 Urine Color COLORLESS Urine Turbidity CLEAR Urine pH 5.0 Urine Specific Finley 1.001 Urine Protein NEG mg/dL Urine Glucose (UA) NEG mg/dL Urine Ketones NEG mg/dL Urine Occult Blood NEG Urine Nitrite NEG Urine Bilirubin NEG Urine Urobilinogen LESS THAN 2.0 MG/DL Urine Leukocyte Esterase NEG Urine WBC 1 /hpf Microscopic Urinalysis Comment CULT NOT INDICATED Urine Opiates Screen NEG Urine Barbiturates Screen NEG Urine Amphetamines Screen NEG Urine Benzodiazepines Screen NEG Urine Cocaine Screen NEG Urine Cannabinoids Screen NEG White Blood Count 4.0 TH/MM3 Red Blood Count 4.35 MIL/MM3 Hemoglobin 10.3 GM/DL Hematocrit 33.5 % Mean Corpuscular Volume 77.0 FL Mean Corpuscular Hemoglobin 23.6 PG Mean Corpuscular Hemoglobin Concent 30.7 % Red Cell Distribution Width 24.2 % Platelet Count 309 TH/MM3 Mean Platelet Volume 7.2 FL Neutrophils (%) (Auto) 33.5 % Lymphocytes (%) (Auto) 52.1 % Monocytes (%) (Auto) 10.0 % Eosinophils (%) (Auto) 2.4 % Basophils (%) (Auto) 2.0 % Neutrophils # (Auto) 1.3 TH/MM3 Lymphocytes # (Auto) 2.1 TH/MM3 Monocytes # (Auto) 0.4 TH/MM3 Eosinophils # (Auto) 0.1 TH/MM3 Basophils # (Auto) 0.1 TH/MM3 CBC Comment DIFF FINAL Differential Comment Prothrombin Time 9.8 SEC Prothromb Time International Ratio 1.0 RATIO Activated Partial Thromboplast Time 24.0 SEC Blood Urea Nitrogen 11 MG/DL Creatinine 0.97 MG/DL Random Glucose 95 MG/DL Total Protein 7.9 GM/DL Albumin 3.7 GM/DL Calcium Level 8.3 MG/DL Magnesium Level 2.1 MG/DL Alkaline Phosphatase 99 U/L Aspartate Amino Transf (AST/SGOT) 30 U/L Alanine Aminotransferase (ALT/SGPT) 20 U/L Total Bilirubin 0.1 MG/DL Sodium Level 138 MEQ/L Potassium Level 4.0 MEQ/L Chloride Level 104 MEQ/L Carbon Dioxide Level 24.2 MEQ/L Anion Gap 10 MEQ/L Estimat Glomerular Filtration Rate 96 ML/MIN Total Creatine Kinase 398 U/L Creatine Kinase MB 10.9 NG/ML Creatine Kinase MB % 2.7 % Troponin I LESS THAN 0.02 NG/ML Lipase 440 U/L Ethyl Alcohol Level 295 MG/DL MDM Medical Decision Making Medical Screen Exam Complete: Yes Emergency Medical Condition: Yes Medical Record Reviewed: Yes Differential Diagnosis Acute pancreatitis, versus alcohol related gastritis, versus acid reflux, versus esophagitis, versus acute coronary syndrome Narrative Course During the course of the patient's emergency department visit, the patient's history, examination, and differential diagnosis were reviewed with the patient. The patient was placed on a strap cutter with oximetry and frequent blood pressure monitoring. The patient had IV access obtained and blood work sent for analysis. The patient had an EKG done on arrival. The patient's EKG reveals a sinus rhythm with a sinus arrhythmia heart rate of 83, QRS duration is 94 ms, QTC [address] segment elevation is noted. A wavy baseline is noted which could be affecting interpretation. The patient was initially provided Protonix 40 mg IV, Zofran 4 mg IV, thiamine 100 mg IV, an inch of nitroglycerin paste was applied to the chest wall, aspirin 324 mg p.o. 1. The patient's laboratory studies were reviewed and remarkable for CBC & BMP Diagram 03/02/18 20:00 Total Protein 7.9, Albumin 3.7, Calcium Level 8.3 L, Magnesium Level 2.1, Alkaline Phosphatase 99, Aspartate Amino Transf (AST/SGOT) 30, Alanine Aminotransferase (ALT/SGPT) 20, Total Bilirubin 0.1 L, cardiac enzymes showed a CPK of 398 with a normal MB percent of 2.7, troponin I less than 0.02, lipase 440, PT PTT unremarkable, urinalysis and remark, urine drug screen negative, alcohol level 295. Radiology studies were reviewed and remarkable for a chest x-ray that shows no acute cardiopulmonary disease, stable pleural calcifications. CT scan of the abdomen and pelvis shows mild nonspecific nonobstructive bowel gas pattern which may represent a mild ileus and/or gastroenteritis. The patient has had nausea and vomiting 2 today, however no diarrhea with normal bowel movement today, therefore I doubt that the patient has an ileus or gastroenteritis. 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 The patient will be admitted to the chest pain center for rule out serial cardiac enzyme protocol. The patient denies ever having cardiac catheterization. He did have a treadmill stress test done last year. The patient's results were discussed with the patient, including the plan of care. I explained that further testing and/ or monitoring is indicated based on the patient's history, examination, and/ or laboratory findings. Therefore, I recommended admission for additional evaluation. The patient expressed understanding and was agreeable with this plan. The patient was admitted to the hospital in stable condition and sent to a bed under the care of chest pain center. Diagnosis Primary Impression: Chest pain Qualified Codes: R07.9 - Chest pain, unspecified Additional Impression: Abdominal pain Qualified Codes: R10.84 - Generalized abdominal pain Admitting Information Admitting Physician Requests: Marisel Richmond MD Mar 02, 2018 19:38
[2018-03-02 19:54] LABS: BILIRUBIN, URINE NEG (NEG); BLOOD, URINE NEG (NEG); GLUCOSE,URINE NEG (NEG); KETONE, URINE NEG (NEG); NITRITE,URINE NEG (NEG); URINE COLOR COLORLESS (YELLW/STRAW); URINE LEUKOCYTE ESTERASE NEG (NEG)
[2018-03-02] MEDS ORDERED: NITROGLYCERIN 2% OINT 1 GM PACKET TOPICAL ONE (20:15)
[2018-03-02] MEDS ORDERED: PANTOPRAZOLE SODIUM 40 MG VIAL IV PUSH ONE (20:15)
[2018-03-02] MEDS ORDERED: ASPIRIN 81 MG CHEW TAB CHEW ONE (20:15)
[2018-03-02] MEDS ORDERED: THIAMINE INJ 100 MG in SODIUM CHLORIDE 0.9% INJ 100 ML IV ONE (20:15)
[2018-03-02] MEDS ORDERED: ONDANSETRON HCL 4 MG/2 ML VIAL IV PUSH ONE (20:15)
--- NOTE | 2018-03-02 20:27 | RADRPT ---
EXAM DATE/TIME: 03/02/2018 19:56 [facility] COMPARISON: CHEST SINGLE AP, November 02, 2017, 22:27. CHEST SINGLE AP, December 31, 2017, 18:50. INDICATIONS : Chest pain. MEDICAL HISTORY : None. SURGICAL HISTORY : None. ENCOUNTER: Initial ACUITY: 1 day PAIN SCORE: 6/10 LOCATION: middle chest. FINDINGS: A single view of the chest demonstrates the lungs to be symmetrically aerated without evidence of mas s, infiltrate or effusion. Stable pleural calcifications are again noted. The cardiomediastinal conto urs are unremarkable. Osseous structures are intact. CONCLUSION: No acute disease. There is stable pleural calcifications. Grey Gorman MD on March 02, 2018 at 20:24 Board Certified Radiologist. This report was verified electronically.
[2018-03-02] MEDS: SODIUM CHLOR 0.9% 1000 ML INJ 1,000 ML IV SCH (20:29)
[2018-03-02 20:41] LABS: AUTOMATED NEUTROPHIL # 1.3 TH/MM3 (1.8-7.7); BASOPHIL # 0.1 TH/MM3 (0-0.2); EOSINOPHIL # 0.1 TH/MM3 (0-0.4); EOSINOPHIL % 2.4 % (0.0-4.0); HEMATOCRIT 33.5 % (39.0-51.0); HEMOGLOBIN 10.3 GM/DL (13.0-17.0); LYMPH % 52.1 % (9.0-44.0); LYMPHOCYTE # 2.1 TH/MM3 (1.0-4.8); MEAN CORPUSCULAR HEMOGLOBIN 23.6 PG (27.0-34.0); MEAN CORPUSCULAR HGB CONC 30.7 % (32.0-36.0); MEAN PLATELET VOLUME 7.2 FL (7.0-11.0); MONOCYTE # 0.4 TH/MM3 (0-0.9); NEUT % 33.5 % (16.0-70.0); PLATELET COUNT 309 TH/MM3 (150-450); RED BLOOD COUNT 4.35 MIL/MM3 (4.50-5.90); RED CELL DISTRIBUTION WIDTH 24.2 % (11.6-17.2)
[2018-03-02 20:50] LABS: PROTHROMBIN TIME - PATIENT 9.8 SEC (9.8-11.6)
[2018-03-02 21:04] LABS: ALBUMIN 3.7 GM/DL (3.4-5.0); AST (GOT) 30 U/L (15-37); BICARBONATE 24.2 MEQ/L (21.0-32.0); BLOOD UREA NITROGEN 11 MG/DL (7-18); CALCIUM 8.3 MG/DL (8.5-10.1); CHLORIDE 104 MEQ/L (98-107); CREATININE 0.97 MG/DL (0.60-1.30); GLOMERULAR FILTRATION RATE 96 ML/MIN (>89); GLUCOSE,RANDOM 95 MG/DL (74-106); MAGNESIUM 2.1 MG/DL (1.5-2.5); SODIUM (NA) 138 MEQ/L (136-145)
[2018-03-02 21:06] LABS: ALT (GPT) 20 U/L (12-78)
[2018-03-02 21:08] LABS: ALKALINE PHOSPHATASE 99 U/L (45-117); TOTAL BILIRUBIN ADULT 0.1 MG/DL (0.2-1.0); TOTAL PROTEIN 7.9 GM/DL (6.4-8.2); TROPONIN I LESS THAN 0.02 NG/ML (0.02-0.05)
[2018-03-02 22:26] VITALS: BP 128/68; PULSE 76; RESP 15; O2SAT 98
[2018-03-02] MEDS ORDERED: IOHEXOL 350 MG/ML 10 ML VIAL (for RAD DIAG) IVCONTRAST ONE (22:30)
--- NOTE | 2018-03-02 22:44 | RADRPT ---
EXAM DATE/TIME: 03/02/2018 22:07 [facility] COMPARISON: No previous studies available for comparison. INDICATIONS : Diffuse abdominal pain. IV CONTRAST: 100 cc Omnipaque 350 (iohexol) IV ORAL CONTRAST: No oral contrast ingested. RADIATION DOSE: 6.64 CTDIvol (mGy) MEDICAL HISTORY : Hypertension. Ulcers. Hernia, hiatal.GERD. SURGICAL HISTORY : None. ENCOUNTER: Initial ACUITY: 1 week PAIN SCALE: 6/10 LOCATION: Abdomen. TECHNIQUE: Volumetric scanning of the abdomen and pelvis was performed. Using automated exposure control and ad justment of the mA and/or kV according to patient size, radiation dose was kept as low as reasonably achievable to obtain optimal diagnostic quality images. DICOM format image data is available electro nically for review and comparison. FINDINGS: LOWER LUNGS: There are pleural plaques both lower pleura which are partially calcified. There is apparent minimal right effusion. LIVER: Homogeneous density without lesion. There is a small amount of. Ascitic fluid along the lateral liver margin. There is no dilation of the biliary tree. No calcified gallstones. SPLEEN: Normal size without lesion. PANCREAS: Within normal limits. KIDNEYS: Normal in size and shape. There is no mass, stone or hydronephrosis. ADRENAL GLANDS: Within normal limits. VASCULAR: There is no aortic aneurysm. BOWEL/MESENTERY: A moderate size retrocardiac hiatal hernia is present. No oral contrast was given limiting the sensit ivity. There are multiple loops of nondilated or containing small bowel several small air-fluid level s. Scattered diverticuli are noted in the colon with no focal wall thickening or inflammatory change. There is a normal appendix. There is no free air or fluid. The stomach, small bowel, and colon demon strate no acute abnormality. ABDOMINAL WALL: Within normal limits. RETROPERITONEUM: There is no lymphadenopathy. BLADDER: No wall thickening or mass. REPRODUCTIVE: Within normal limits. INGUINAL: There is no lymphadenopathy or hernia. MUSCULOSKELETAL: Within normal limits for patient age. CONCLUSION: 1. Mildly nonspecific, nonobstructive bowel gas pattern which may represent a mild ileus and/or gastr oenteritis. 2. Mild diverticulosis. 3. Moderate size retrocardiac hiatal hernia. 4. Calcified pleural plaques. 5. Small amount of ascitic fluid along the lateral liver margin. 6. Minimal right effusion. Grey Gorman MD on March 02, 2018 at 22:38 Board Certified Radiologist. This report was verified electronically.
[2018-03-02] MEDS ORDERED: SODIUM CHLORIDE 0.9% FLUSH 10 ML FLUSH IV FLUSH PRN (23:00)
[2018-03-02 23:04] VITALS: O2SAT 98
[2018-03-03] VITALS (12 sets, daily range): BP systolic 93–163; BP diastolic 51–84; PULSE 64–105; RESP 16–18; TEMP 97.7–98.9; O2SAT 96–99
[2018-03-03 01:40] LABS: TROPONIN I LESS THAN 0.02 NG/ML (0.02-0.05)
[2018-03-03 05:01] LABS: TROPONIN I LESS THAN 0.02 NG/ML (0.02-0.05)
[2018-03-03] MEDS: SODIUM CHLOR 0.9% 1000 ML INJ 1,000 ML IV SCH ×2 (08:24→16:23)
[2018-03-03] MEDS: SODIUM CHLORIDE 0.9% FLUSH 10 ML FLUSH IV FLUSH SCH ×2 (08:24→21:00)
--- NOTE | 2018-03-03 13:53 | HHI.HP ---
H[facility] Primary Care Physician No Primary Care Physician Admission Diagnosis cp r/o ACS Diagnoses: (1) Abdominal pain (2) Atypical chest pain Chief Complaint: chest and abdominal pain Travel History International Travel<30 Days: No Contact w/Intl Traveler <30 Da: No Traveled to Known Affected Are: No History of Present Illness 62-year-old male with history of hypertension, heart murmur, presents with a 2- 3 days history of chest pain. He locates the pain across the anterior chest without radiation, described as constant sharp and pressure pains. patient states he has been walking from [place] to [place] over the past 10 days. States the pain is worse with coughing. He also reports abdominal pain and had emesis x 2 yesterday after eating some chicken noodle soup. Review of Systems Except as stated in HPI: all other systems reviewed are Neg Past Family Social History Past Medical History Hypertension Heart Murmur GERD Hiatal Hernia Gastric ulcers Arthritis Depression Past Surgical History Pin in hand Reported Medications Alcohol Use: Yes (4 beers/ day) Tobacco Use: No (QUIT 2011) Substance Use: No Allergies: Coded Allergies: No Known Allergies (Verified Allergy, Unknown, 01/25/18) Family History Brother with CHF Another brother with cardiac stents Sister with 3 open heart surgeries Social History Triamterene-Hydrochlorothiazide 37.5-25 Mg Tab 1 Tab PO DAILY Physical Exam Vital Signs Vital Signs Date Time Temp Pulse Resp B/P (MAP) Pulse Ox O2 Delivery O2 Flow Rate FiO2 03/03/18 11:21 97.7 77 18 132/84 (100) 98 03/03/18 08:35 97.7 77 18 132/70 (90) 99 03/03/18 05:11 98.9 71 16 109/57 (74) 99 03/03/18 04:00 105 03/03/18 01:18 84 03/03/18 01:08 97.8 83 16 93/51 (65) 96 03/02/18 23:18 03/02/18 23:04 98 03/02/18 22:26 76 15 128/68 (88) 98 Room Air 03/02/18 19:24 22 100 Nasal Cannula 1.00 03/02/18 19:23 20 99 Room Air 03/02/18 19:20 93 22 99 03/02/18 19:12 98.3 95 22 148/114 (125) 99 Physical Exam GENERAL: This is a well-nourished, well-developed patient, in no apparent distress. SKIN: No rashes, ecchymoses or lesions. Cool and dry. HEAD: Atraumatic. Normocephalic. No temporal or scalp tenderness. EYES: Pupils equal round and reactive. Extraocular motions intact. No scleral icterus. No injection or drainage. ENT: Nose without bleeding, purulent drainage or septal hematoma. Throat without erythema, tonsillar hypertrophy or exudate. Uvula midline. Airway patent. NECK: Trachea midline. No JVD or lymphadenopathy. Supple, nontender, no meningeal signs. CARDIOVASCULAR: Regular rate and rhythm with II/ murmurs RESPIRATORY: Clear to auscultation. Breath sounds equal bilaterally. No wheezes , rales, or rhonchi. GASTROINTESTINAL: Abdomen soft, non-tender, nondistended. No hepato-splenomegaly , or palpable masses. No guarding. MUSCULOSKELETAL: Extremities without clubbing, cyanosis, or edema. No joint tenderness, effusion, or edema noted. No calf tenderness. Negative Homans sign bilaterally. NEUROLOGICAL: Awake and alert. Cranial nerves II through XII intact. Motor and sensory grossly within normal limits. Five out of 5 muscle strength in all muscle groups. Normal speech. Laboratory Laboratory Tests Test 03/02/18 19:30 03/02/18 20:00 03/03/18 00:55 03/03/18 04:20 Urine Color COLORLESS Urine Turbidity CLEAR Urine pH 5.0 Urine Specific [place] 1.001 Urine Protein NEG Urine Glucose (UA) NEG Urine Ketones NEG Urine Occult Blood NEG Urine Nitrite NEG Urine Bilirubin NEG Urine Urobilinogen LESS THAN 2.0 Urine Leukocyte Esterase NEG Urine WBC 1 Microscopic Urinalysis Comment CULT NOT INDICATED Urine Opiates Screen NEG Urine Barbiturates Screen NEG Urine Amphetamines Screen NEG Urine Benzodiazepines Screen NEG Urine Cocaine Screen NEG Urine Cannabinoids Screen NEG White Blood Count 4.0 Red Blood Count 4.35 Hemoglobin 10.3 Hematocrit 33.5 Mean Corpuscular Volume 77.0 Mean Corpuscular Hemoglobin 23.6 Mean Corpuscular Hemoglobin Concent 30.7 Red Cell Distribution Width 24.2 Platelet Count 309 Mean Platelet Volume 7.2 Neutrophils (%) (Auto) 33.5 Lymphocytes (%) (Auto) 52.1 Monocytes (%) (Auto) 10.0 Eosinophils (%) (Auto) 2.4 Basophils (%) (Auto) 2.0 Neutrophils # (Auto) 1.3 Lymphocytes # (Auto) 2.1 Monocytes # (Auto) 0.4 Eosinophils # (Auto) 0.1 Basophils # (Auto) 0.1 CBC Comment DIFF FINAL Differential Comment Prothrombin Time 9.8 Prothromb Time International Ratio 1.0 Activated Partial Thromboplast Time 24.0 Blood Urea Nitrogen 11 Creatinine 0.97 Random Glucose 95 Total Protein 7.9 Albumin 3.7 Calcium Level 8.3 Magnesium Level 2.1 Alkaline Phosphatase 99 Aspartate Amino Transf (AST/SGOT) 30 Alanine Aminotransferase (ALT/SGPT) 20 Total Bilirubin 0.1 Sodium Level 138 Potassium Level 4.0 Chloride Level 104 Carbon Dioxide Level 24.2 Anion Gap 10 Estimat Glomerular Filtration Rate 96 Total Creatine Kinase 398 318 295 Creatine Kinase MB 10.9 9.0 7.6 Creatine Kinase MB % 2.7 2.8 Troponin I LESS THAN 0.02 LESS THAN 0.02 LESS THAN 0.02 Lipase 440 Ethyl Alcohol Level 295 Result Diagram: 03/02/18199903/02/181999 Imaging Last Impressions Abdomen/Pelvis CT 03/02/182150 Signed Impressions: Service Date/Time: Friday, March 02, 2018 22:07 - CONCLUSION: 1. Mildly nonspecific, nonobstructive bowel gas pattern which may represent a mild ileus and/or gastroenteritis. 2. Mild diverticulosis. 3. Moderate size retrocardiac hiatal hernia. 4. Calcified pleural plaques. 5. Small amount of ascitic fluid along the lateral liver margin. 6. Minimal right effusion. Grey Gorman MD Chest X-Ray 03/02/181916 Signed Impressions: Service Date/Time: Friday, March 02, 2018 19:56 - CONCLUSION: No acute disease. There is stable pleural calcifications. Grey Gorman MD Septic Shock Reassessment Septic shock perfusion: reassessment completed Caprini VTE Risk Assessment Caprini VTE Risk Assessment: No/Low Risk (score <= 1) Caprini Risk Assessment Model Point Value = 1 Point Value = 2 Point Value = 3 Point Value = 5 Age 41-60 Minor surgery BMI > 25 kg/m2 Swollen legs Varicose veins or History of unexplained or recurrent spontaneous Oral contraceptives or hormone replacement Sepsis (< 1 month) Serious lung disease, including pneumonia (< 1 month) Abnormal pulmonary function Acute myocardial infarction Congestive heart failure (< 1 month) History of inflammatory bowel disease Medical patient at bed rest Age 61-74 Arthroscopic surgery Major open surgery (> 45 min) Laparoscopic surgery (> 45 min) Malignancy Confined to bed (> 72 hours) Immobilizing plaster cast Central venous access Age >= 75 History of VTE Family history of VTE Factor V Leiden Prothrombin [id number] Lupus anticoagulant Anticardiolipin antibodies Elevated serum homocysteine Heparin-induced thrombocytopenia Other congenital or acquired thrombophilia Stroke (< 1 month) Elective arthroplasty Hip, pelvis, or leg fracture Acute spinal cord injury (< 1 month) Prophylaxis Regimen Total Risk Factor Score Risk Level Prophylaxis Regimen 0-1 Low Early ambulation 2 Moderate Order ONE of the following: *Sequential Compression Device (SCD) *Heparin 5000 units SQ BID 3-4 Higher Order ONE of the following medications: *Heparin 5000 units SQ TID *Enoxaparin/Lovenox 40 mg SQ daily (WT < 150 kg, CrCl > 30 mL/min) *Enoxaparin/Lovenox 30 mg SQ daily (WT < 150 kg, CrCl > 10-29 mL/min) *Enoxaparin/Lovenox 30 mg SQ BID (WT < 150 kg, CrCl > 30 mL/min) AND/OR *Sequential Compression Device (SCD) 5 or more Highest Order ONE of the following medications: *Heparin 5000 units SQ TID (Preferred with Epidurals) *Enoxaparin/Lovenox 40 mg SQ daily (WT < 150 kg, CrCl > 30 mL/min) *Enoxaparin/Lovenox 30 mg SQ daily (WT < 150 kg, CrCl > 10-29 mL/min) *Enoxaparin/Lovenox 30 mg SQ BID (WT < 150 kg, CrCl > 30 mL/min) AND *Sequential Compression Device (SCD) Assessment and Plan Assessment and Plan Chronic Pancreatitis: stable Atypical Chest Pain: -CXR noted and review without any CPD -ACS ruled out with negative serial cardiac enzymes x3 and EKG without acute ischemic changes -Monitor on telemetry -Symptoms currently improved gastroenteritis CT abdomen/pelvis noted and review with finding of possible mild ileus vs gastroenteritis Conservative treatment Hypertension: -Restart patient's home med including triamterene-HCTZ Microcytic Anemia:baseline -outpatient f/up with PCP Alcohol Abuse: patient drinks 4-8beers daily. -Start thiamine, folate, MV -CIWA protocol, Ativan prn -Monitor for withdrawal DVT Prophylaxis: Heparin sq Code Status Full code Problem Qualifiers (1) Abdominal pain: Qualified Codes: R10.84 - Generalized abdominal pain Marquis Au MD Mar 03, 2018 13:53
[2018-03-03] MEDS ORDERED: ACETAMINOPHEN 325 MG TAB PO PRN ×2 (14:00)
[2018-03-03] MEDS ORDERED: SODIUM CHLORIDE 0.9% FLUSH 10 ML FLUSH IV FLUSH PRN (14:00)
[2018-03-03] MEDS ORDERED: RESP: ALBUTEROL 2.5 MG/IPRATROPIUM 0.5 MG NEB (PRN) NEB (14:00)
[2018-03-03] MEDS ORDERED: LORazepam 2 MG TAB PO PRN (14:00)
[2018-03-03] MEDS ORDERED: FLUMAZENIL 0.5 MG/5 ML VIAL IV PUSH PRN (14:00)
[2018-03-03] MEDS ORDERED: ONDANSETRON HCL 4 MG/2 ML VIAL IVP PRN (14:00)
[2018-03-03] MEDS ORDERED: LORazepam 1 MG TAB PO PRN (14:00)
[2018-03-03] MEDS ORDERED: NALOXONE HCL 0.4 MG/ML AMP IV PUSH PRN (14:00)
[2018-03-03] MEDS ORDERED: LORazepam 2 MG/ML VIAL IV PUSH PRN ×4 (14:00)
[2018-03-03] MEDS ORDERED: MAGNESIUM HYDROXIDE SUSP 30 ML CUP PO PRN (14:00)
[2018-03-03] MEDS: ACETAMINOPHEN/HYDROcodone 325 MG/5 MG TAB PO PRN ×2 (16:23→21:19)
[2018-03-03] MEDS ORDERED: SODIUM CHLORIDE 0.9% FLUSH 10 ML FLUSH IV FLUSH SCH (21:00)
[2018-03-03] MEDS ORDERED: TEMAZEPAM 15 MG CAP PO PRN (21:00)
[2018-03-04 00:03] VITALS: BP 145/76; PULSE 86; RESP 18; TEMP 98; O2SAT 96
[2018-03-04] MEDS: SODIUM CHLOR 0.9% 1000 ML INJ 1,000 ML IV SCH ×2 (02:12→04:15)
[2018-03-04 05:21] VITALS: BP 148/81; PULSE 66; RESP 18; TEMP 98.2; O2SAT 99
[2018-03-04 08:30] VITALS: BP 172/88; PULSE 65; RESP 18; TEMP 98; O2SAT 99
--- NOTE | 2018-03-04 08:54 | HHI.PR ---
Subjective Remarks Follow-up Atypical chest and abdominal pain 03/04/18-patient seen and examined, reports improvement of shortness of breath, chest pain or abdominal pain. Tolerated by mouth without any compression or nausea and vomiting. Currently afebrile. States, he is ready for discharge. Objective Vitals Vital Signs Date Time Temp Pulse Resp B/P (MAP) Pulse Ox O2 Delivery O2 Flow Rate FiO2 03/04/18 08:30 98.0 65 18 172/88 (116) 99 03/04/18 05:21 98.2 66 18 148/81 (103) 99 03/04/18 00:03 98.0 86 18 145/76 (99) 96 03/03/18 23:00 98 03/03/18 20:07 98.9 105 18 154/72 (99) 97 03/03/18 18:30 78 03/03/18 17:09 98.4 84 18 163/81 (108) 99 03/03/18 12:00 64 03/03/18 11:21 97.7 77 18 132/84 (100) 98 Result Diagram: 03/02/18199903/02/181999 Imaging Last Impressions Abdomen/Pelvis CT 03/02/182150 Signed Impressions: Service Date/Time: Friday, March 02, 2018 22:07 - CONCLUSION: 1. Mildly nonspecific, nonobstructive bowel gas pattern which may represent a mild ileus and/or gastroenteritis. 2. Mild diverticulosis. 3. Moderate size retrocardiac hiatal hernia. 4. Calcified pleural plaques. 5. Small amount of ascitic fluid along the lateral liver margin. 6. Minimal right effusion. Grey Gorman MD Chest X-Ray 03/02/181916 Signed Impressions: Service Date/Time: Friday, March 02, 2018 19:56 - CONCLUSION: No acute disease. There is stable pleural calcifications. Grey Gorman MD Objective Remarks GENERAL: NAD SKIN: Warm and dry. HEAD: Normocephalic. EYES: No scleral icterus. No injection or drainage. NECK: Supple, trachea midline. No JVD or lymphadenopathy. CARDIOVASCULAR: Regular rate and rhythm with II/ murmurs RESPIRATORY: Breath sounds equal bilaterally. No accessory muscle use. GASTROINTESTINAL: Abdomen soft, non-tender, nondistended. MUSCULOSKELETAL: No cyanosis, or edema. BACK: Nontender without obvious deformity. No CVA tenderness. A/P Problem List: (1) Abdominal pain ICD Code: R10.9 - Unspecified abdominal pain Status: Resolved (2) Atypical chest pain ICD Code: R07.89 - Other chest pain Status: Resolved Assessment and Plan 62-year-old man with Chronic Pancreatitis: stable Atypical Chest Pain: -CXR noted and review without any CPD -ACS ruled out with negative serial cardiac enzymes x3 and EKG without acute ischemic changes -Monitor on telemetry -Symptoms currently improved gastroenteritis-resolved CT abdomen/pelvis noted and review with finding of possible mild ileus vs gastroenteritis Conservative treatment Hypertension: -Continue patient's home med including triamterene-HCTZ Microcytic Anemia:baseline -outpatient f/up with PCP Alcohol Abuse: patient drinks 4-8beers daily. -Currently on thiamine, folate, MV -CIWA protocol, Ativan prn -Monitor for withdrawal DVT Prophylaxis: Heparin sq Discharge Planning Discharge patient to home Condition on discharge: Improved Regular Diet as tolerated Ad Meenakshi activity Rx written:None Follow-up with primary care physician in 1 week Problem Qualifiers (1) Abdominal pain: Qualified Codes: R10.84 - Generalized abdominal pain Marquis Au MD Mar 04, 2018 08:54
[2018-03-04] MEDS ORDERED: Triamterene-Hctz 37.5-25 Mg PO (08:55)
[2018-03-04] MEDS ORDERED: THIAMINE HCL 100 MG TAB PO SCH (09:00)
[2018-03-04] MEDS: SODIUM CHLORIDE 0.9% FLUSH 10 ML FLUSH IV FLUSH SCH (09:00)
[2018-03-04] MEDS ORDERED: TRIAMTERENE/HCTZ 37.5 MG/25 MG TAB PO SCH (09:00)
[2018-03-04] MEDS ORDERED: PANTOPRAZOLE SOD 40 MG DELAYED RELEASE TAB PO SCH (09:00)
[2018-03-04 11:00] LABS: AUTOMATED NEUTROPHIL # 1.7 TH/MM3 (1.8-7.7); BASOPHIL % 0.9 % (0.0-2.0); EOSINOPHIL # 0.1 TH/MM3 (0-0.4); EOSINOPHIL % 2.1 % (0.0-4.0); HEMATOCRIT 32.9 % (39.0-51.0); HEMOGLOBIN 10.1 GM/DL (13.0-17.0); LYMPH % 30.5 % (9.0-44.0); MEAN CELL VOLUME 76.7 FL (80.0-100.0); MEAN CORPUSCULAR HEMOGLOBIN 23.5 PG (27.0-34.0); MEAN CORPUSCULAR HGB CONC 30.7 % (32.0-36.0); MEAN PLATELET VOLUME 7.3 FL (7.0-11.0); MONO % 15.2 % (0.0-8.0); MONOCYTE # 0.5 TH/MM3 (0-0.9); NEUT % 51.3 % (16.0-70.0); PLATELET COUNT 247 TH/MM3 (150-450); RED BLOOD COUNT 4.29 MIL/MM3 (4.50-5.90); RED CELL DISTRIBUTION WIDTH 24.3 % (11.6-17.2); WHITE BLOOD COUNT 3.3 TH/MM3 (4.0-11.0)
[2018-03-04 11:31] LABS: ALBUMIN 3.4 GM/DL (3.4-5.0); AST (GOT) 25 U/L (15-37); BICARBONATE 26.9 MEQ/L (21.0-32.0); BLOOD UREA NITROGEN 10 MG/DL (7-18); CALCIUM 8.3 MG/DL (8.5-10.1); CHLORIDE 104 MEQ/L (98-107); CREATININE 0.91 MG/DL (0.60-1.30); GLOMERULAR FILTRATION RATE 103 ML/MIN (>89); GLUCOSE,RANDOM 92 MG/DL (74-106); SODIUM (NA) 139 MEQ/L (136-145)
[2018-03-04 11:32] LABS: ALT (GPT) 17 U/L (12-78)
[2018-03-04 11:35] LABS: ALKALINE PHOSPHATASE 87 U/L (45-117); TOTAL BILIRUBIN ADULT 0.4 MG/DL (0.2-1.0); TOTAL PROTEIN 7.2 GM/DL (6.4-8.2)
[2018-03-04 12:41] LABS: OVALOCYTES 1+ (NORMAL)
--- NOTE | 2018-03-04 18:04 | EKG ---
Date Performed: 03/03/2018 Time Performed: 04:26:22 PTAGE: 62 years EKG: Sinus rhythm NONSPECIFIC ST ELEVATION BORDERLINE ECG Since PREVIOUS TRACING , no significant change noted PREVIOUS TRACIN03/03/2018 01.06 DOCTOR: Phylicia Leblanc Interpretating Date/Time 03/04/2018 18:02:48
--- NOTE | 2018-03-04 18:05 | EKG ---
Date Performed: 03/03/2018 Time Performed: 01:06:11 PTAGE: 62 years EKG: Sinus rhythm NONSPECIFIC ST & T-WAVE ABNORMALITY BORDERLINE ECG Since PREVIOUS TRACING , no significant change noted PREVIOUS TRACIN03/02/2018 19.58 DOCTOR: Phylicia Leblanc Interpretating Date/Time 03/04/2018 18:03:49
--- NOTE | 2018-03-04 18:06 | EKG ---
Date Performed: 03/02/2018 Time Performed: 19:58:31 PTAGE: 62 years EKG: Sinus rhythm WITH SINUS ARRHYTHMIA ST ELEVATION CONSISTENT WITH INJURY, PERICARDITIS, OR EARLY REPOLARIZATION ABN ORMAL ECG Since PREVIOUS TRACING , no significant change noted PREVIOUS TRACIN01/26/2018 08.01 DOCTOR: Phylicia Leblanc Interpretating Date/Time 03/04/2018 18:04:32
== END 2018-03-04 11:24 | disposition home or self-care (01) ==
LOC: NEPE 19:05 → NEDA 21:54 → NEPGCP 23:33
PROVIDERS: ADMIT Hospitalist; ATTEND Hospitalist
DX: K86.1 Other chronic pancreatitis (principal); R07.89 Other chest pain; K52.9 Noninfective gastroenteritis and colitis, unspecified; R94.31 Abnormal electrocardiogram [ECG] [EKG]; R06.02 Shortness of breath; R05 Cough; R68.83 Chills (without fever); R18.8 Other ascites; I10 Essential (primary) hypertension; D50.9 Iron deficiency anemia, unspecified; F10.10 Alcohol abuse, uncomplicated; K21.9 Gastro-esophageal reflux disease without esophagitis; K57.90 Diverticulosis of intestine, part unspecified, without perforation or abscess without bleeding; K44.9 Diaphragmatic hernia without obstruction or gangrene; F32.9 Major depressive disorder, single episode, unspecified; M19.90 Unspecified osteoarthritis, unspecified site; Z59.0 Homelessness
CPT/HCPCS: 71045; 74177; 80053; 80307; 81001; 82550; 82552; 83690; 83735; 84484; 85025; 85610; 85730; 93005; 96361; 96365; 96366; 96375; 99285; C9113; G0378; J2405; J3411; J7030; Q9967